=== PATIENT | male | born 1940 | race Caucasian/White ===

== ENCOUNTER 2020-04-05 14:45 | Emergency (ER) | payer MEDICARE, OTHER, SELFPAY ==
[2020-04-05 15:08] VITALS: BP 141/70; PULSE 86; RESP 16; TEMP 36.6; O2SAT 98
--- NOTE | 2020-04-05 15:28 | ED.GENADULT ---
HPI - General Adult General Chief complaint: Eye Problems Stated complaint: Foreign object right eye Time Seen by Provider: 04/05/20 15:28 Source: patient and RN notes reviewed Mode of arrival: ambulatory Limitations: no limitations History of Present Illness HPI narrative: 79-year-old male presents with complains of sensation of foreign body in right eye for 1.5 hours. Several irrigation attempts to remove piece of copper from RT eye with little relief. Madi says he believes he obtained pieces of scraping in RT eye while wearing safety glasses. Mild redness, no drainage. No exacerbating factors. Relieving factors is closing eyes. Denies blurred vision, double vision, or pain of eye with movement. Denies fever or chills. The patient reports he have not been diagnosed with COVID-19. The patient reports he is not waiting for the results of a COVID-19 lab test. The patient reports he do not have fever, chills, weakness, fatigue, myalgia, or facial swelling. The patient reports he do not have a new or worsening cough or shortness of breath. Denies chest pain. The patient reports he do not have any rhinorrhea, congestion, sore throat, nausea, vomiting, abdominal pain, and diarrhea. Tolerating po intake well. Denies recent traveling. Denies concerns for COVID-19 or exposures been home with limited outdoor exposure except for essential household needs and return home. At this time, patient is not suspected of having COVID-19. Some parts of this dictation were generated by voice recognition software and may contain typographical and/or grammatical inaccuracies. Related Data Home Medications Medication Instructions Recorded Confirmed amlodipine 04/05/20 atorvastatin 04/05/20 losartan 04/05/20 omeprazole 04/05/20 pravastatin 04/05/20 tamsulosin mg PO 04/05/20 Allergies Allergy/AdvReac Type Severity Reaction Status Date / Time No Known Allergies Allergy Unverified 01/27/15 16:44 Review of Systems Review of Systems: Narrative: CONSTITUTIONAL: Denies fever, chills, sweats. EYES: Denies visual changes. Complains of RT eye foreign body sensation. Denies discharge. ENT: Denies rhinorrhea, congestion, sore throat, otalgia. CARDIOVASCULAR: Denies chest pain, palpitations, edema. RESPIRATORY: Denies dyspnea, wheezing, cough. GASTROINTESTINAL: Denies abdominal pain, nausea, vomiting, diarrhea. GENITOURINARY: Denies dysuria, hematuria, abnormal discharge. SKIN: Denies rash or itching. MUSCULOSKELETAL: Denies acute back pain, joint pain, or myalgia. NEUROLOGIC: Denies numbness or focal weakness. PSYCHIATRIC: Denies anxiety or depression. All systems reviewed & are unremarkable except as noted in HPI and below. [facility] Past Medical History Medical History (Updated 04/06/20 @ 00:00 by Dick Chen) Bladder cancer Cataract RT cataract surgery on 03/17/20. History of gastroesophageal reflux (GERD) Hypercholesteremia Hypertension Melanoma Surgical History Surgical History (Updated 04/05/20 @ 15:52 by DELMY Park) H/O right inguinal hernia repair History of hernia surgery LT inguinal Family History Family History (Updated 04/05/20 @ 15:52 by DELMY Park) Father Unknown family medical history Mother , Old age No problems noted. Social History Social History (Updated 04/05/20 @ 15:53 by DELMY Park) Smoking status: Never smoker Tobacco type: cigarettes Second hand tobacco smoke exposure: No Alcohol intake: current Alcohol use details: Rarely Substance use: never Occupation/Education: retired Gender identity (if verbalized by the patient): Male Comments At time of signature, I have reviewed and agree with nursing past medical, surgical, social, and family history. Please see nursing chart for further information. There is no relevant family history pertinent to the presenting complaint. Exam Narrative: Exam Narr
== END 2020-04-05 16:07 | disposition home or self-care (01) ==
PROVIDERS: Emergency Provider Nurse Practitioner Family
DX: S05.01XA Injury of conjunctiva and corneal abrasion without foreign body, right eye, initial encounter (principal); Z98.41 Cataract extraction status, right eye; Z85.51 Personal history of malignant neoplasm of bladder; E78.00 Pure hypercholesterolemia, unspecified; I10 Essential (primary) hypertension; Z85.820 Personal history of malignant melanoma of skin; X58.XXXA Exposure to other specified factors, initial encounter
CPT/HCPCS: 99213; A9270; G0463

== ENCOUNTER 2021-06-25 14:44 | Emergency (ER) | payer MEDICARE, OTHER, SELFPAY ==
[2021-06-25 14:59] VITALS: BP 150/77; PULSE 79; RESP 20; TEMP 36.6; O2SAT 99
[2021-06-25] MEDS: ONDANSETRON HCL ODT 4 MG TABLET PO (15:18)
--- NOTE | 2021-06-25 15:18 | ED.GENADULT ---
HPI - General Adult General Chief complaint: Nausea/Vomiting/Diarrhea Stated complaint: Abdominal Pain Time Seen by Provider: 06/25/21 14:51 Source: patient Mode of arrival: ambulatory Limitations: no limitations History of Present Illness HPI narrative: 81 y/o male. PMHx GERD, HTN, HLD, Renal Carcinoma, BPH. Presents to [facility] today with acute complaints of abdominal pain, N/V, as well as 'tingling' sensation to his bilateral hands. Pt tells me that he had eaten lunch this AM with his at [facility], when he suddenly began to feel like his bilateral hands were tingling, and then led immediately to a sudden onset of mid-epigastric abdominal pain and N/V. He tells me that he thought these symptoms would pass, however his vomiting has since continued. No focal weakness. He denies chest pain, dyspnea, palpitations, edema. No flank pain, maleurogen concern, loose or bloody stool. He is without additional acute c/o illness upon PE. Related Data Home Medications Medication Instructions Recorded Confirmed amlodipine 5 mg PO DAILY 04/05/20 06/25/21 atorvastatin 40 mg PO DAILY 04/05/20 06/25/21 losartan 50 mg PO DAILY 04/05/20 06/25/21 omeprazole 20 mg PO DAILY 04/05/20 06/25/21 tamsulosin 0.4 mg PO DAILY 04/05/20 06/25/21 meclizine 25 mg tablet 25 mg PO BID 01/07/21 06/25/21 multivitamin 1 tablet PO DAILY 01/07/21 06/25/21 Allergies Allergy/AdvReac Type Severity Reaction Status Date / Time No Known Allergies Allergy Unverified 06/25/21 15:11 Review of Systems Review of Systems: CONSTITUTIONAL: Denies fever, chills, sweats. EYES: Denies visual changes, redness, discharge. ENT: Denies rhinorrhea, congestion, sore throat, otalgia. CARDIOVASCULAR: Denies chest pain, palpitations, edema. RESPIRATORY: Denies dyspnea, wheezing, cough GASTROINTESTINAL: Positive mid-epigastric abdominal pain, nausea, vomiting SKIN: Denies rash or itching. MUSCULOSKELETAL: Denies acute back pain, joint pain, or myalgia. NEUROLOGIC: Denies focal weakness. Bilateral hand tingling. PSYCHIATRIC: Denies anxiety or depression. All systems reviewed & are unremarkable except as noted in HPI and below PMFSH Past Medical History Medical History Arthritis Bladder cancer Cataract RT cataract surgery on 03/17/20. History of gastroesophageal reflux (GERD) Hypercholesteremia Hypertension Melanoma Right rotator cuff tear Surgical History Surgical History Basal cell carcinoma excision from right ear H/O right inguinal hernia repair History of hernia surgery LT inguinal Family History Family History Father Unknown family medical history Mother , Old age Hypertension Social History Social History Smoking status: Never smoker Tobacco type: cigarettes Second hand tobacco smoke exposure: No Alcohol intake: current Alcohol use details: Rarely Substance use: never Gender identity (if verbalized by the patient): Male Exam Narrative: GENERAL: This is a well-nourished, well-developed adult, ill appearing. HEAD: normocephalic. EYES: PERRL. EARS: External ears normal CARDIOVASCULAR: Regular rate and rhythm without murmurs, gallops, or rubs. RESPIRATORY: Clear to auscultation. Breath sounds equal bilaterally. No wheezes, rales, or rhonchi. GASTROINTESTINAL: Abdomen soft, nondistended. With tenderness and guarding to mid-epigastric and RUQ. Bowel sounds present. SKIN: warm, intact with no suspicious lesions or rash, good texture and turgor. NEURO: Alert, active, and age appropriate. No focal neurologic deficits. EXTREMITIES: Negative. Course Vital Signs Vital signs: Vital Signs Temperature 36.6 C 06/25/21 14:59 Pulse Rate 79 06/25/21 14:59 Respiratory Rat
--- NOTE | 2021-06-25 15:37 | ECG_ITS ---
Measurements Intervals [place] Rate: 61 P: 58 IA: 198 QRS: 49 QRSD: 90 T: 56 QT: 408 QTc: 411 Interpretive Statements SINUS RHYTHM VOLTAGE CRITERIA FOR LVH BASELINE ARTIFACT- I, II, AVR, AVL BORDERLINE ECG Electronically Signed On 06-25-2021 15:53:08 CDT by Quirino Obrien D.O.
== END 2021-06-25 15:40 | disposition short-term general hospital (02) ==
PROVIDERS: Emergency Provider Nurse Practitioner Adult Health
DX: R10.13 Epigastric pain (principal); R20.2 Paresthesia of skin; R11.2 Nausea with vomiting, unspecified; M19.90 Unspecified osteoarthritis, unspecified site; Z85.51 Personal history of malignant neoplasm of bladder; Z85.828 Personal history of other malignant neoplasm of skin; K21.9 Gastro-esophageal reflux disease without esophagitis; E78.00 Pure hypercholesterolemia, unspecified; I10 Essential (primary) hypertension; Z85.820 Personal history of malignant melanoma of skin
CPT/HCPCS: 93005; 99213; A9270; G0463

== ENCOUNTER 2021-06-25 16:03 | Emergency (ER) | payer MEDICARE, OTHER, SELFPAY ==
--- NOTE | ~2021-06-25 | US_ITS ---
EXAMINATION: US right upper quadrant DATE: 06/25/2021 18:13 INDICATION: Right upper quadrant pain TECHNIQUE: Multiple grayscale and Doppler ultrasound images of the abdomen were obtained. COMPARISON: None available FINDINGS: Bowel gas obscures visualization of the pancreas. The visualized portions of the pancreas a re unremarkable. The liver is normal with normal echogenicity and echotexture. No surface nodularity. Normal hepatopetal flow in the main portal vein. There is debris in the gallbladder. No gallbladder wall thickening or pericholecystic fluid are identified. The normal common bile duct measures 3 mm. T here was no sonographic Martinez sign. IMPRESSION: 1. Debris in the gallbladder. No definite correlate for right upper quadrant pain. Reviewed, dictated and finalized at location A. IMPRESSION: 1. Debris in the gallbladder. No definite correlate for right upper quadrant pa in.
[2021-06-25 16:21] VITALS: BP 157/77; PULSE 68; RESP 18; O2SAT 98
[2021-06-25 16:45] LABS: Basophils Percent Auto 0.3 % (0.2-1.2); Eosinophils Absolute Auto 0.1 K/mm3 (0-0.3); Eosinophils Percent Auto 0.8 % (0-4.4); Hematocrit 41.1 % (42.0-52.0); Hemoglobin 13.7 g/dL (14.0-18.0); Immature Granulocyte Absolute 0.07 K/mm3 (0.00-0.031); Immature Granulocyte Percent A 0.6 % (0-0.5); Lymphocytes Absolute Auto 0.86 K/mm3 (0.9-3.2); Mean Corpuscular HGB Conc 33.3 g/dl (32-36); Mean Corpuscular Hemoglobin 31.9 pg (26-34); Mean Corpuscular Volume 95.8 fl (80-100); Mean Platelet Volume 9.1 fl (7.4-10.4); Monocytes Absolute Auto 0.6 K/mm3 (0.1-0.6); Monocytes Percent Auto 4.5 % (2.6-8.5); Neutrophils Absolute Auto 10.7 K/mm3 (1.3-6.7); Neutrophils Percent Auto 86.8 % (45.5-73.1); Platelet Count Result 231 k/mm3 (150-375); Red Blood Count 4.29 M/mm3 (4.6-6.20); Red Cell Distribution Width 12.8 % (11.5-14.5); White Blood Count 12.3 K/mm3 (4.5-10.0)
[2021-06-25 16:58] LABS: Alanine Aminotransferase 92 U/L (4-50); Albumin Level 4.3 g/dL (3.5-5.1); Alkaline Phosphatase 136 U/L (38-126); Anion Gap 6 mmol/L (8-16); Aspartate Amino Transferase 138 U/L (17-59); Bilirubin,Total 0.7 mg/dL (0.2-1.3); Blood Urea Nitrogen 22 mg/dL (9-20); Calcium 9.5 mg/dL (8.4-10.2); Carbon Dioxide 30 mmol/L (22-30); Chloride 104 mmol/L (98-107); Estimated CRCL calculation 44 ml/min; Estimated Glomerular Filt Rate > 60; Glucose 128 mg/dL (65-110); Lipase 53 U/L (23-300); Potassium 3.8 mmol/L (3.4-5.0); Sodium 140 mmol/L (137-145)
--- NOTE | 2021-06-25 19:36 | ED.ABDPAIN ---
HPI - Abdominal Pain General Chief Complaint: Abdominal Pain Stated Complaint: ABD Pain Time Seen by Provider: 06/25/21 17:53 History of Present Illness HPI narrative: Patient is an 81-year-old male who presents ER with epigastric and right upper quadrant pain. Sudden onset after eating [employer]. Associate with some nausea. No fevers or chills or sweats. Pain went away after receiving a pain medication at an urgent care. Has not had similar pain at this time patient is not having any discomfort. No diarrhea. Related Data Home Medications Medication Instructions Recorded Confirmed amlodipine 5 mg PO DAILY 04/05/20 06/25/21 atorvastatin 40 mg PO DAILY 04/05/20 06/25/21 losartan 50 mg PO DAILY 04/05/20 06/25/21 omeprazole 20 mg PO DAILY 04/05/20 06/25/21 tamsulosin 0.4 mg PO DAILY 04/05/20 06/25/21 meclizine 25 mg tablet 25 mg PO BID 01/07/21 06/25/21 multivitamin 1 tablet PO DAILY 01/07/21 06/25/21 Allergies Allergy/AdvReac Type Severity Reaction Status Date / Time No Known Allergies Allergy Verified 06/25/21 17:55 Review of Systems Review of Systems: All systems reviewed & are unremarkable except as noted in HPI and below Constitutional: Constitutional: Denies chills, Denies fever(s) and Denies weakness ENT: Denies nasal congestion and Denies sore throat Cardiovascular: Cardiovascular: Denies chest pain, Denies rapid heart rate and Denies radiating jaw, neck or arm pain Respiratory: Respiratory: Denies cough and Denies dyspnea Gastrointestinal: Gastrointestinal: Reports abdominal pain, Denies bloating, Denies diarrhea, Reports nausea and Denies vomiting Genitourinary: Genitourinary: Denies dysuria and Denies urinary frequency [facility] Past Medical History Medical History Arthritis Bladder cancer Cataract RT cataract surgery on 03/17/20. History of gastroesophageal reflux (GERD) Hypercholesteremia Hypertension Melanoma Right rotator cuff tear Surgical History Surgical History Basal cell carcinoma excision from right ear H/O right inguinal hernia repair History of hernia surgery LT inguinal Family History Family History Father Unknown family medical history Mother , Old age Hypertension Social History Social History Smoking status: Never smoker Tobacco type: cigarettes Second hand tobacco smoke exposure: No Alcohol intake: current Alcohol use details: Rarely Substance use: never Gender identity (if verbalized by the patient): Male Exam Narrative: GENERAL: Well-appearing, well-nourished, and in no acute distress. HEAD: Normocephalic, atraumatic. EYES: PERRL and EOMI. CHEST: Clear to auscultation. No respiratory distress. HEART: Regular rate and rhythm. Normal peripheral pulses. ABDOMEN: Soft, nontender, nondistended. EXTREMITIES: Normal range of motion. No edema. SKIN: Warm, dry, no rash. NEURO: Alert and oriented x3. PSYCH: Normal mood and affect. Course Course Emergency Course: Discussed case with Dr. Che. Recommends outpatient antibiotics and follow-up in clinic. Discussed low-fat diet with patient. Discharge home. Vital Signs Vital signs: Vital Signs Pulse Rate 68 06/25/21 16:21 Respiratory Rate 18 06/25/21 16:21 Blood Pressure 157/77 H 06/25/21 16:21 Pulse Oximetry 98 06/25/21 16:21 Pulse Rate 68 06/25/21 16:21 Respiratory Rate 18 06/25/21 16:21 Blood Pressure 157/77 H 06/25/21 16:21 Pulse Oximetry 98 06/25/21 16:21 MDM - Abdominal Pain Lab Data Result diagrams: 06/25/21 16:26 06/25/21 16:26 Labs: Lab Results 06/25/21 06/25/21 Range/Units 16:26 16:26 WBC 12.3 H (4.5-10.0) K/mm3 RBC 4.29 L (4.6-6.20) M/mm3 Hgb 13.7 L (14.0-18.0) g/dL
[2021-06-25] MEDS: CIPROFLOXACIN 500 MG TAB PO (20:17)
[2021-06-25 20:20] VITALS: BP 147/72; PULSE 72; RESP 18; O2SAT 99
== END 2021-06-25 20:25 | disposition home or self-care (01) ==
PROVIDERS: Emergency Medicine; Emergency Provider Emergency Medicine
DX: K80.50 Calculus of bile duct without cholangitis or cholecystitis without obstruction (principal); R10.13 Epigastric pain; M19.90 Unspecified osteoarthritis, unspecified site; K21.9 Gastro-esophageal reflux disease without esophagitis; E78.00 Pure hypercholesterolemia, unspecified; Z85.51 Personal history of malignant neoplasm of bladder; Z85.820 Personal history of malignant melanoma of skin; Z98.41 Cataract extraction status, right eye
CPT/HCPCS: 36415; 76705; 80053; 83690; 85025; 93005; 99284; A9270

== ENCOUNTER 2021-06-29 04:01 | Inpatient (IN) | payer MEDICARE, OTHER, SELFPAY ==
[2021-06-29] VITALS (38 sets, daily range): BP systolic 120–149; BP diastolic 55–86; PULSE 74–102; RESP 11–26; TEMP 36.3–36.9; O2SAT 92–100; BMI 23.8
--- NOTE | ~2021-06-29 | CT_ITS ---
EXAMINATION: CT abdomen pelvis wo/w con DATE: 07/03/2021 12:27 INDICATION: Urinary symptoms, history of bladder cancer, recent cholecystectomy TECHNIQUE: Computed tomography (CT) of the abdomen and pelvis was performed without intravenous contr ast. CT of the abdomen and pelvis was then performed with a total of 130 mL Omnipaque 350 intravenous contrast using a double-bolus technique for simultaneous opacification of the renal parenchyma and r enal collecting system. The dose-length product (DLP) was 1379.85 mGy-cm. Automated exposure control and iterative reconstruction technique were employed. COMPARISON: 06/29/2021 FINDINGS: There is a small right pleural effusion. There is mild atelectasis in the right lung base. The heart size is normal. There are changes of interval cholecystectomy. A small volume of perihepati c fluid is noted which tracks into the right pericolic gutter. Punctate foci of free intraperitoneal gas in the upper abdomen and gas in the anterior abdominal wall are also consistent with recent surge ry. Cysts of the liver measure up to 9 mm in the left hepatic lobe. The spleen, pancreas, and adrenal glands are normal. Cysts of the kidneys measure up to 10.2 cm on the left. The urinary bladder is di stended. There is moderate right hydroureteronephrosis. There is no opacification of the ureters or b ladder beyond bilateral renal pelves. No suspicious renal or urothelial lesion is identified. No path ologically enlarged abdominal or pelvic lymph nodes are identified. There is no evidence of bowel obs truction. The appendix is normal. There appears to be nodular enlargement of the central prostate to the right of midline. Compression fractures of T11 and L1 are again noted. IMPRESSION: 1. No suspicious renal or urothelial lesion identified. 2. Changes related to recent cholecystectomy. Reviewed, dictated and finalized at location A.
--- NOTE | ~2021-06-29 | XR_ITS ---
EXAMINATION: XR ERCP EXAM DATE: 06/30/2021 13:08 INDICATION: Choledocholithiasis. TECHNIQUE: Fluoroscopy used during XR ERCP performed by Dr. Trevor Contreras MD. Radiolo gist was not present for the imaging or procedure. Total fluoroscopic time of 154. The DAP for this procedure was 1.0 mGym2. A total of 5 images sent to PACS from the exam. Correlation is made to CT abdomen pelvis from yesterday. FINDINGS: The ampulla was cannulated, injected. There is mild biliary dilation. A filling defect is suspected on the initial images, could be gas bubble or stone. Correlate with procedure note. IMPRESSION: Fluoroscopy used during ERCP, stone removal. Reviewed, dictated and finalized at location B.
--- NOTE | ~2021-06-29 | US_ITS ---
EXAMINATION: US renal BI DATE: 07/02/2021 15:15 INDICATION: Bladder cancer. Urinary symptoms after Valdes catheter placement. TECHNIQUE: Multiple ultrasound grayscale images of the kidneys were obtained. COMPARISON: CT abdomen and pelvis 06/29/2021 FINDINGS: The right kidney measures 11.0 x 7.1 x 7.9 cm. The left kidney measures 11.6 x 4.6 x 5.1 cm. The kidn eys demonstrate normal parenchymal echogenicity. There is moderate right hydronephrosis. There is a 1 4 mm cyst in right kidney. There is a 10.9 cm cyst in left kidney.. The bladder is normal. IMPRESSION: 1. Moderate right-sided hydronephrosis, worsened from 06/29/2021. Reviewed, dictated and finalized at location A.
--- NOTE | ~2021-06-29 | CT_ITS ---
EXAMINATION: CT abdomen pelvis w con INDICATION: Abdominal pain, elevated lipase TECHNIQUE: Computed tomographic images of the abdomen and pelvis were obtained after the administrati on of 100 cc of Omnipaque 350 intravenous contrast. The dose-length product (DLP) was 644.31 mGy-cm. Automated exposure control and iterative reconstruction technique were employed. COMPARISON: 06/29/2008 FINDINGS: Minimal dependent atelectasis is present in the lung bases. The heart size is normal. There is a 4 mm stone in the distal common bile duct which causes intrahepatic and extrahepatic biliary di latation. Stones are present in the gallbladder. There is dilatation and wall thickening of the gallb ladder. There is subtle fat stranding around the head of the pancreas. Cysts of the liver measure up to 9 mm in the left hepatic lobe. The spleen and adrenal glands are normal. Cysts of the kidneys nelia ure up to 10.2 cm on the left. There is mild right hydroureteronephrosis of unclear etiology. There i s calcified atherosclerosis of the aorta and many of the other arteries. No pathologically enlarged a bdominal or pelvic lymph nodes are identified. There is no free intraperitoneal gas or evidence of pierre wel obstruction. There are age indeterminate compression fractures of the T11 and L1 vertebral bodies . A small fat-containing umbilical hernia is noted. IMPRESSION: 1. Choledocholithiasis with distal common bile duct obstruction resulting in intrahepatic and extra h epatic biliary dilatation, gallbladder distention and likely secondary cholecystitis, and pancreatiti s. 2. Mild right hydroureteronephrosis of unclear etiology. Reviewed, dictated and finalized at location A. IMPRESSION: 1. Choledocholithiasis with distal common bile duct obstruction resulting in in trahepatic and extra hepatic biliary dilatation, gallbladder distention and lik karan secondary cholecystitis, and pancreatitis. 2. Mild right hydroureteronephrosis of unclear etiology.
--- NOTE | 2021-06-29 04:16 | PC.NURSE ---
Seen here for abd pain that was dx as gallbladder 3 days ago. has appt. c GI Dr. Che 07/01. c/o same pain. has not taken RX pain med bc it wasn't that bad . no distress.
--- NOTE | 2021-06-29 04:47 | ED.GENADULT ---
HPI - General Adult General Chief complaint: Abdominal Pain <Armen Velazquez MD - Last Filed: 06/29/21 07:04> Stated complaint: abd pain <Armen Velazquez MD - Last Filed: 06/29/21 07:04> Time Seen by Provider: 06/29/21 04:23 <Armen Velazquez MD - Last Filed: 06/29/21 07:04> History of Present Illness HPI narrative: Patient 81-year-old gentleman who presents the emergency department with chief complaint of abdominal pain and low-grade fever. The patient was seen in the emergency department recently found to have sludge in his gallbladder the patient was pain controlled and discharged home on p.o. antibiotics to follow-up with Dr. Che this week patient reports that he noticed he had maybe a low-grade fever at home and noticed that his pain was creeping back up. Patient states that he is feeling little bit better since he arrived to the emergency department <Armen Velazquez MD - Last Filed: 06/29/21 07:04> Related Data Home medications: Home Medications Medication Instructions Recorded Confirmed amlodipine 5 mg PO DAILY 04/05/20 06/25/21 atorvastatin 40 mg PO DAILY 04/05/20 06/25/21 losartan 50 mg PO DAILY 04/05/20 06/25/21 omeprazole 20 mg PO DAILY 04/05/20 06/25/21 tamsulosin 0.4 mg PO DAILY 04/05/20 06/25/21 meclizine 25 mg tablet 25 mg PO BID 01/07/21 06/25/21 multivitamin 1 tablet PO DAILY 01/07/21 06/25/21 <Armen Velazquez MD - Last Filed: 06/29/21 07:04> Allergies/adverse reactions: Allergies Allergy/AdvReac Type Severity Reaction Status Date / Time No Known Allergies Allergy Verified 06/29/21 04:21 <Armen Velazquez MD - Last Filed: 06/29/21 07:04> Review of Systems Review of Systems: A 10 system review of systems was completed on the patient and is negative except for what is stated in the HPI. Nursing and ancillary documentation was reviewed. <Armen Velazquez MD - Last Filed: 06/29/21 07:04> PMFSH Past Medical History Medical History: Medical History Arthritis Bladder cancer Cataract RT cataract surgery on 03/17/20. History of gastroesophageal reflux (GERD) Hypercholesteremia Hypertension Melanoma Right rotator cuff tear <Armen Velazquez MD - Last Filed: 06/29/21 07:04> Surgical History Surgical History: Surgical History Basal cell carcinoma excision from right ear H/O right inguinal hernia repair History of hernia surgery LT inguinal <Armen Velazquez MD - Last Filed: 06/29/21 07:04> Family History Family History: Family History Father Unknown family medical history Mother , Old age Hypertension <Armen Velazquez MD - Last Filed: 06/29/21 07:04> Social History Social History: Social History Smoking status: Never smoker Tobacco type: cigarettes Second hand tobacco smoke exposure: No Alcohol intake: current Alcohol use details: Rarely Substance use: never Gender identity (if verbalized by the patient): Male <Armen Velazquez MD - Last Filed: 06/29/21 07:04> Exam Narrative: GENERAL: Well-appearing, well-nourished, and in no acute distress. HEAD: Normocephalic, atraumatic. EYES: PERRLA and EOMI. ENT: Nares clear, no rhinorrhea or epistaxis. Mucous membranes moist. NECK: Supple. CHEST: Clear to auscultation. No respiratory distress. HEART: Regular rate and rhythm. No murmur heard. Normal peripheral pulses. ABDOMEN: Soft, mild tenderness to palpation in the epigastric region, nondistended, normal active bowel sounds. EXTREMITIES: Normal range of motion. No edema. SKIN: Warm, dry, no rash. NEURO: No focal deficits. Alert and oriented x3. PSYCH: Normal
[2021-06-29] MEDS: SODIUM CHLORIDE 0.9% IV 1,000 ML 999 ML IV CONT (04:54)
[2021-06-29] MEDS: ONDANSETRON INJ 4 MG/2 ML VIAL IV PUSH ×2 (04:54→09:04)
[2021-06-29] MEDS: MORPHINE SULFATE (*CRX) 4 MG/ML INJ IV PUSH ×3 (04:54→09:04)
[2021-06-29 05:13] LABS: Basophils Absolute Auto 0.1 K/mm3 (0.0-0.1); Basophils Percent Auto 0.5 % (0.2-1.2); Eosinophils Absolute Auto 0.1 K/mm3 (0-0.3); Eosinophils Percent Auto 0.8 % (0-4.4); Hematocrit 36.8 % (42.0-52.0); Hemoglobin 12.7 g/dL (14.0-18.0); Immature Granulocyte Absolute 0.06 K/mm3 (0.00-0.031); Immature Granulocyte Percent A 0.5 % (0-0.5); Lymphocytes Absolute Auto 1.14 K/mm3 (0.9-3.2); Lymphocytes Percent Auto 9.5 % (18.3-44.2); Mean Corpuscular HGB Conc 34.5 g/dl (32-36); Mean Corpuscular Hemoglobin 31.6 pg (26-34); Mean Corpuscular Volume 91.5 fl (80-100); Mean Platelet Volume 9.4 fl (7.4-10.4); Monocytes Absolute Auto 0.9 K/mm3 (0.1-0.6); Monocytes Percent Auto 7.6 % (2.6-8.5); Neutrophils Absolute Auto 9.8 K/mm3 (1.3-6.7); Neutrophils Percent Auto 81.1 % (45.5-73.1); Platelet Count Result 251 k/mm3 (150-375); Red Blood Count 4.02 M/mm3 (4.6-6.20); Red Cell Distribution Width 12.3 % (11.5-14.5); White Blood Count 12.1 K/mm3 (4.5-10.0)
--- NOTE | 2021-06-29 05:21 | PC.NURSE ---
Meds given as ordered, fluids infusing, pt provided with urinal at bedside and instructed on need for urine sample. verbalized understanding. call light in reach and family at bedside. will continue to monitor.
[2021-06-29 05:22] LABS: Alanine Aminotransferase 91 U/L (4-50); Albumin Level 3.8 g/dL (3.5-5.1); Alkaline Phosphatase 256 U/L (38-126); Anion Gap 11 mmol/L (8-16); Aspartate Amino Transferase 113 U/L (17-59); Bilirubin,Total 1.9 mg/dL (0.2-1.3); Blood Urea Nitrogen 18 mg/dL (9-20); Carbon Dioxide 24 mmol/L (22-30); Chloride 100 mmol/L (98-107); Estimated CRCL calculation 44 ml/min; Estimated Glomerular Filt Rate > 60; Glucose 130 mg/dL (65-110); Lipase 1330 U/L (23-300); Potassium 3.3 mmol/L (3.4-5.0); Sodium 135 mmol/L (137-145)
--- NOTE | 2021-06-29 06:52 | PC.NURSE ---
Urine obtained and sent to lab.
[2021-06-29 06:53] LABS: Add Urine Microscopic? YES; Appearance Urine Clear (Clear); Bilirubin Urine Negative (Negative); Blood Urine Negative (Negative); Color Urine Yellow (Yellow); Glucose Urine UA Negative (Negative); Ketones Urine Negative (Negative); Leukocyte Esterase Ur 1+ LEU/UL (Negative); Mucus Urine Rare /lpf; Nitrate Urine Negative (Negative); Protein Urine 1+ mg/dL (Negative); RBC Urine 0-2 /hpf (0-2); Specific Grav Ur 1.014 (1.001-1.035); Urobilinogen Urine Negative mg/dL (<2.0); WBC Urine 31-50 /hpf
--- NOTE | 2021-06-29 09:20 | ADMGEN ---
This patient, Madi Jiang, was admitted to 3 [facility] Surg Room 301-01. Patient/family oriented to hospital policies and general routines including ID bracelet, bed and alarms, visiting hours, pain management, procedures, bathroom and other care routines, personal items, smoking policy, room service/diet, and visiting hours. Information on how to activate the Rapid Response Team has been discussed. Patient/Family are encouraged to report perceived risks to care and to ask questions if they do not understand what they are told or what they should do.
[2021-06-29] MEDS: SODIUM CHLORIDE 0.9% IV 1,000 ML 125 ML IV CONT ×2 (09:24→17:51)
--- NOTE | 2021-06-29 09:36 | ADMGEN ---
This patient, Madi Jiang, was admitted to 3 [facility] Surg Room 301-01. Patient/family oriented to hospital policies and general routines including ID bracelet, bed and alarms, visiting hours, pain management, procedures, bathroom and other care routines, personal items, smoking policy, room service/diet, and visiting hours. Information on how to activate the Rapid Response Team has been discussed. Patient/Family are encouraged to report perceived risks to care and to ask questions if they do not understand what they are told or what they should do. AT BEDSIDE
--- NOTE | 2021-06-29 10:54 | PM.IMHP ---
H&P: HPI History of Present Illness Date/Time: 06/29/21 10:54 Chief Complaint: Abdominal pain Narrative: Patient 81-year-old gentleman who presents to the emergency department with chief complaint of abdominal pain and low-grade fever. Patient was recently in the ER with a similar problem few days ago. An abdominal ultrasound done at the time showed sludge in has gallbladder pain was controlled and was discharged home on p.o. antibiotics to follow up with general surgeon next week however he comes back with increased pain in his abdomen in the upper mid abdomen surveyed low-grade fever and nausea. This time he had a CT abdomen which showed choledocholithiasis with distal common bile duct obstruction resulting in intrahepatic and extrahepatic biliary dilatation gallbladder distention and likely secondary cholecystitis and pancreatitis. He also had elevated lipase and liver enzymes. He is admitted for further evaluation and management. Review of Systems Review of Systems: - CONSTITUTIONAL: Denies weight loss, reports low-grade fever and chills. - HEENT: Denies changes in vision and hearing - RESPIRATORY: Denies SOB and cough. - CV: Denies palpitations and CP. - GI: Reports abdominal pain, nausea, denies vomiting and diarrhea. - : Denies dysuria and urinary frequency. - MSK: Denies myalgia and joint pain. - SKIN: Denies rash and pruritus. - NEUROLOGICAL: Denies headache and syncope. - PSYCHIATRIC: Denies recent changes in mood. Denies anxiety and depression. All systems reviewed & are unremarkable except as noted in HPI and below Constitutional: Constitutional: Reports fatigue and Reports weakness Neurologic: Reports weakness Endocrine: Endocrine: Reports fatigue [facility] Past Medical History Medical History (Updated 06/29/21 @ 14:03 by Roberto Feliciano MD) Arthritis Bladder cancer Cataract RT cataract surgery on 03/17/20. History of gastroesophageal reflux (GERD) Hypercholesteremia Hypertension Melanoma Right rotator cuff tear Surgical History Surgical History Basal cell carcinoma excision from right ear H/O right inguinal hernia repair History of hernia surgery LT inguinal Family History Family History Father Unknown family medical history Mother , Old age Hypertension Social History Social History Smoking status: Never smoker Tobacco type: cigarettes Second hand tobacco smoke exposure: No Alcohol intake: never Alcohol use details: Rarely Substance use: never Substance use type: does not use Gender identity (if verbalized by the patient): Male Spiritual care concerns: No Meds Home Medications and Allergies Home Medications Medication Instructions Recorded Confirmed Type amlodipine 5 mg PO DAILY 04/05/20 06/29/21 History atorvastatin [Lipitor] 40 mg PO DAILY 04/05/20 06/29/21 History losartan 50 mg PO DAILY 04/05/20 06/29/21 History omeprazole 20 mg PO DAILY 04/05/20 06/29/21 History tamsulosin 0.4 mg PO DAILY 04/05/20 06/29/21 History meclizine 25 mg tablet 25 mg PO BID 01/07/21 06/29/21 History multivitamin 1 tablet PO DAILY 01/07/21 06/29/21 History ciprofloxacin HCl [Cipro] 500 mg PO Q12H #14 tablet 06/25/21 06/29/21 Rx hydrocodone-acetaminophen 1 tablet PO Q6H PRN #12 tablet 06/25/21 06/29/21 Rx metronidazole 500 mg PO Q8H #21 tablet 06/25/21 06/29/21 Rx ondansetron 4 mg PO Q6H PRN #10 tablet 06/25/21 06/29/21 Rx Allergies Allergy/AdvReac Type Severity Reaction Status Date / Time No Known Allergies Allergy Verified 06/29/21 04:21 Vital Signs Vital Signs - 24 hr 06/29/21 04:03 06/29/21 04:13 06/29/21 04:16 Temperature 97.7 F Pulse Rate 102 H 98 100 Respiratory Rate 18 23 H Blood Pressure 140/85 149/76 H Pulse Oximetry 100 98 99 06/29/21 04:17
--- NOTE | 2021-06-29 13:45 | PM.CNGS ---
Assessment and Plan Assessment and plan (1) Choledocholithiasis: Code(s): K80.50 - Calculus of bile duct without cholangitis or cholecystitis without obstruction Status: Acute Assessment and Plan: I have reviewed the CT and discussed the findings with the patient. He has evidence of choledocholithiasis and cholelithiasis. He has been admitted to the hospital for further treatment, and GI is planning for ERCP tomorrow. Will await results of the ERCP, but I tentatively discussed proceeding with laparoscopic cholecystectomy the following day. I discussed with patient that proceeding with laparoscopic cholecystectomy will prevent future episodes like this. I discussed the procedure, risks, benefits, and alternatives. Questions were answered. History of Present Illness Consult details Consult date: 06/29/21 Reason for consult: other (Choledocholithiasis) Requesting physician: Chris Grace MD Narrative: This is an 81-year-old man who presented to the emergency department this morning with epigastric abdominal pain. He began having pains about 4 days ago after eating Retidoc. He had gone to the emergency department on 06/25 and workup showed evidence of debris in the gallbladder but no evidence of cholecystitis. He did have a slight elevated white blood count and slightly elevated liver enzymes at that time, but his bilirubin was normal and ultrasound showed no evidence of common bile duct dilation. He states that after leaving the emergency department he did have some mild intermittent pain, but this pain became worse yesterday and persisted through the night. He then presented back to the emergency department this morning and CT showed evidence of choledocholithiasis and his bilirubin is now slightly elevated. He was admitted for further treatment. He denies any prior episodes like this in the past. He denies any history of liver problems. He has been trying to stay on a low-fat diet, but does not really know what to eat. Review of Systems Review of Systems: All systems reviewed & are unremarkable except as noted in HPI and below Constitutional: Constitutional: Denies chills and Denies fever(s) Eyes: Eyes: Denies change in vision ENT: Denies hearing loss, Denies neck pain and Denies sore throat Cardiovascular: Cardiovascular: Denies chest pain and Denies dyspnea Respiratory: Respiratory: Denies cough, Denies dyspnea and Denies wheezing Gastrointestinal: Gastrointestinal: Reports as per HPI Genitourinary: Genitourinary: Denies hematuria and Denies dysuria Musculoskeletal: Musculoskeletal: Denies arthralgias, Denies joint swelling and Denies neck pain Allergic/Immunologic: Allergic/Immunologic: Denies wheezing PMFSH Past Medical History Medical History Arthritis Bladder cancer Cataract RT cataract surgery on 03/17/20. History of gastroesophageal reflux (GERD) Hypercholesteremia Hypertension Melanoma Right rotator cuff tear Surgical History Surgical History Basal cell carcinoma excision from right ear H/O right inguinal hernia repair History of hernia surgery LT inguinal Family History Family History Father Unknown family medical history Mother , Old age Hypertension Social History Social History Smoking status: Never smoker Tobacco type: cigarettes Second hand tobacco smoke exposure: No Alcohol intake: never Alcohol use details: Rarely Substance use: never Substance use type: does not use Gender identity (if verbalized by the patient): Male Spiritual care concerns: No Meds Home Medications and Allergies Home Medications Medication Instructions Recorded Confirmed Type amlodipine 5 mg PO DAILY 04/05/20 06/29/21 H
[2021-06-29] MEDS: ATORVASTATIN 40 MG TABLET PO (14:47)
[2021-06-29] MEDS: amLODIPine BESYLATE 5 MG TABLET PO (14:47)
--- NOTE | 2021-06-29 17:29 | WPDGICN ---
Assessment and Plan Assessment and plan (1) Choledocholithiasis: Code(s): K80.50 - Calculus of bile duct without cholangitis or cholecystitis without obstruction Status: Acute Assessment and Plan: cause of pain and pancreatitis will do ERCP tomorrow to remove stones, also surgery on board for lap kay continue with pain control and iv abx (2) Gallstone pancreatitis: Code(s): K85.10 - Biliary acute pancreatitis without necrosis or infection Status: Acute Assessment and Plan: medical management (3) Elevated liver enzymes: Code(s): R74.8 - Abnormal levels of other serum enzymes Status: Acute Assessment and Plan: trend liver enzymes ercp tomorrow (4) Hypertension: Code(s): I10 - Essential (primary) hypertension Status: Acute GI Consult Note Consult date/time: 06/29/21 17:29 Reason for consult: ruq pain, choledocholithiasis, GS pancreatitis HPI: Madi Jiang is a 81 year old male with h/o HTN who was recently in the ER with ruq/epigastric discomfort few days ago after had [facility], abdominal ultrasound showed sludge in gallbladder then was discharged home on p.o. antibiotics to follow up with general surgeon. This time returns with similar pain in upper abdomen and some nausea, had chills. CT abdomen reviewed, showed choledocholithiasis with distal common bile duct obstruction resulting in intrahepatic and extrahepatic biliary dilatation gallbladder distention and likely secondary cholecystitis and pancreatitis, bili this time 1.9 and lipase 1300. Denies alcohol abuse, previous episode of pancreatitis. Last egd and colonoscopy ~ 6 years ago. Review of Systems Constitutional: Constitutional: Reports chills Eyes: Eyes: Denies blurry vision ENT: Reports Normal hearing present Cardiovascular: Cardiovascular: Denies chest pain Respiratory: Respiratory: Denies dyspnea Gastrointestinal: Gastrointestinal: Reports abdominal pain Genitourinary: Genitourinary: Denies dysuria Musculoskeletal: Musculoskeletal: Denies neck pain Integumentary/Breasts: Skin/Breast: Denies dry skin Neurologic: Denies headache(s) Psychiatric: Psychiatric: Reports no additional psychiatric complaints [facility] Past Medical History Medical History (Updated 06/29/21 @ 17:34 by Trevor Contreras MD) Arthritis Bladder cancer Cataract RT cataract surgery on 03/17/20. Elevated liver enzymes Gallstone pancreatitis History of gastroesophageal reflux (GERD) Hypercholesteremia Hypertension Melanoma Right rotator cuff tear Surgical History Surgical History Basal cell carcinoma excision from right ear H/O right inguinal hernia repair History of hernia surgery LT inguinal Family History Family History Father Unknown family medical history Mother , Old age Hypertension Social History Social History Smoking status: Never smoker Tobacco type: cigarettes Second hand tobacco smoke exposure: No Alcohol intake: never Alcohol use details: Rarely Substance use: never Substance use type: does not use Gender identity (if verbalized by the patient): Male Spiritual care concerns: No Meds Home Medications and Allergies Home Medications Medication Instructions Recorded Confirmed Type amlodipine 5 mg PO DAILY 04/05/20 06/29/21 History atorvastatin [Lipitor] 40 mg PO DAILY 04/05/20 06/29/21 History losartan 50 mg PO DAILY 04/05/20 06/29/21 History omeprazole 20 mg PO DAILY 04/05/20 06/29/21 History tamsulosin 0.4 mg PO DAILY 04/05/20 06/29/21 History meclizine 25 mg tablet 25 mg PO BID 01/07/21 06/29/21 History multivitamin 1 tablet PO DAILY 01/07/21 06/29/21 History ciprofloxacin HCl [Cipro] 500 mg PO Q12H #14 tablet 06/25/21 06/29/21 Rx hydrocodone-acet
[2021-06-29] MEDS: LOSARTAN POTASSIUM 50 MG TABLET PO (17:51)
[2021-06-29] MEDS: TAMSULOSIN HCL 0.4 MG CAPSULE PO (20:43)
[2021-06-30] VITALS (7 sets, daily range): BP systolic 132–155; BP diastolic 55–82; PULSE 55–94; RESP 14–18; TEMP 36.1–36.9; O2SAT 95–98
[2021-06-30] MEDS: SODIUM CHLORIDE 0.9% IV 1,000 ML 125 ML IV CONT (01:51)
[2021-06-30 05:52] LABS: Basophils Absolute Auto 0.1 K/mm3 (0.0-0.1); Basophils Percent Auto 0.6 % (0.2-1.2); Eosinophils Absolute Auto 0.3 K/mm3 (0-0.3); Eosinophils Percent Auto 2.4 % (0-4.4); Hemoglobin 11.9 g/dL (14.0-18.0); Immature Granulocyte Absolute 0.04 K/mm3 (0.00-0.031); Immature Granulocyte Percent A 0.4 % (0-0.5); Lymphocytes Absolute Auto 1.14 K/mm3 (0.9-3.2); Mean Corpuscular Hemoglobin 32.3 pg (26-34); Mean Corpuscular Volume 95.1 fl (80-100); Mean Platelet Volume 9.3 fl (7.4-10.4); Monocytes Absolute Auto 0.7 K/mm3 (0.1-0.6); Monocytes Percent Auto 6.4 % (2.6-8.5); Neutrophils Absolute Auto 8.3 K/mm3 (1.3-6.7); Neutrophils Percent Auto 79.2 % (45.5-73.1); Platelet Count Result 227 k/mm3 (150-375); Red Blood Count 3.68 M/mm3 (4.6-6.20); Red Cell Distribution Width 12.6 % (11.5-14.5); White Blood Count 10.4 K/mm3 (4.5-10.0)
[2021-06-30 06:19] LABS: Alanine Aminotransferase 93 U/L (4-50); Albumin Level 2.9 g/dL (3.5-5.1); Alkaline Phosphatase 254 U/L (38-126); Anion Gap 7 mmol/L (8-16); Aspartate Amino Transferase 95 U/L (17-59); Blood Urea Nitrogen 9 mg/dL (9-20); Calcium 8.3 mg/dL (8.4-10.2); Carbon Dioxide 24 mmol/L (22-30); Chloride 107 mmol/L (98-107); Estimated CRCL calculation 49 ml/min; Estimated Glomerular Filt Rate > 60; Glucose 105 mg/dL (65-110); Magnesium 1.8 mg/dL (1.6-2.3); Potassium 3.6 mmol/L (3.4-5.0); Sodium 138 mmol/L (137-145)
[2021-06-30] MEDS: PANTOPRAZOLE 40 MG TABLET PO (08:59)
[2021-06-30] MEDS: LOSARTAN POTASSIUM 50 MG TABLET PO (08:59)
[2021-06-30] MEDS: MULTIVITAMINS THERAPEUTIC TAB (*BKC) 1 TABLET PO (09:00)
--- NOTE | 2021-06-30 09:33 | WPDANESEPPF ---
Anes - Initial Pre Proc Eval Procedure: Operation Date: 06/30/21 12:30 Proposed Procedures p Endoscopic Retro Cholangiopancreatogram - Trevor Contreras MD Operation Date: 07/01/21 12:30 Proposed Procedures p Laparoscopic Cholecystectomy - Erik Crook DO Date/Time: 06/30/21 09:33 Pre Op Diagnosis: Choledocolithiasis/cholecystitis Patient Data Age: 81 Gender: M Height: 1.73 m Weight: 71 kg Last Vital Signs Temp 36.3 C L 06/30/21 06:00 Pulse 94 06/30/21 06:00 Resp 16 06/30/21 06:00 BP 132/56 L 06/30/21 06:00 Pulse Ox 95 06/30/21 06:00 Allergies Allergy/AdvReac Type Severity Reaction Status Date / Time No Known Allergies Allergy Verified 06/29/21 04:21 Home Medications Medication Instructions Recorded Confirmed Type amlodipine 5 mg PO DAILY 04/05/20 06/29/21 History atorvastatin [Lipitor] 40 mg PO DAILY 04/05/20 06/29/21 History losartan 50 mg PO DAILY 04/05/20 06/29/21 History omeprazole 20 mg PO DAILY 04/05/20 06/29/21 History tamsulosin 0.4 mg PO DAILY 04/05/20 06/29/21 History meclizine 25 mg tablet 25 mg PO BID 01/07/21 06/29/21 History multivitamin 1 tablet PO DAILY 01/07/21 06/29/21 History ciprofloxacin HCl [Cipro] 500 mg PO Q12H #14 tablet 06/25/21 06/29/21 Rx hydrocodone-acetaminophen 1 tablet PO Q6H PRN #12 tablet 06/25/21 06/29/21 Rx metronidazole 500 mg PO Q8H #21 tablet 06/25/21 06/29/21 Rx ondansetron 4 mg PO Q6H PRN #10 tablet 06/25/21 06/29/21 Rx Laboratory Tests 06/30/21 06/30/21 05:23 05:23 WBC 10.4 K/mm3 H K/mm3 (4.5-10.0) RBC 3.68 M/mm3 L M/mm3 (4.6-6.20) Hgb 11.9 g/dL L g/dL (14.0-18.0) Hct 35.0 % L % (42.0-52.0) MCV 95.1 fl fl (80-100) MCH 32.3 pg pg (26-34) MCHC 34.0 g/dl g/dl (32-36) RDW 12.6 % % (11.5-14.5) Plt Count 227 k/mm3 k/mm3 (150-375) MPV 9.3 fl fl (7.4-10.4) Immature Gran % (Auto) 0.4 % % (0-0.5) Neut % (Auto) 79.2 % H % (45.5-73.1) Lymph % (Auto) 11.0 % L % (18.3-44.2) [place] % (Auto) 6.4 % % (2.6-8.5) Eos % (Auto) 2.4 % % (0-4.4) Baso % (Auto) 0.6 % % (0.2-1.2) Lymph # (Auto) 1.14 K/mm3 K/mm3 (0.9-3.2) [place] # (Auto) 0.7 K/mm3 H K/mm3 (0.1-0.6) Eos # (Auto) 0.3 K/mm3 K/mm3 (0-0.3) Baso # (Auto) 0.1 K/mm3 K/mm3 (0.0-0.1) Abs Immat Gran (auto) 0.04 K/mm3 H K/mm3 (0.00-0.031) Absolute Neuts (auto) 8.3 K/mm3 H K/mm3 (1.3-6.7) Absolute Nucleated RBC 0.0 K/mm3 K/mm3 (0.0-0.012) Nucleated RBC % 0.0 % % (0.0-0.2) Sodium 138 mmol/L mmol/L (137-145) Potassium 3.6 mmol/L mmol/L (3.4-5.0) Chloride 107 mmol/L mmol/L (98-107) Carbon Dioxide 24 mmol/L mmol/L (22-30) Anion Gap 7 mmol/L L mmol/L (8-16) BUN 9 mg/dL D mg/dL (9-20) Creatinine 1.00 mg/dL mg/dL (0.7-1.3) Estim Creat Clear Calc 49 ml/min ml/min Estimated GFR > 60 (59 - ) Glucose 105 mg/dL mg/dL (65-110) Calcium 8.3 mg/dL L mg/dL (8.4-10.2) Magnesium 1.8 mg/dL mg/dL (1.6-2.3) Total Bilirubin 3.0 mg/dL H mg/dL (0.2-1.3) AST 95 U/L H U/L (17-59) ALT 93 U/L H U/L (4-50) Alkaline Phosphatase 254 U/L H U/L (38-126) Total Protein 6.0 g/dL L g/dL (6.3-8.2) Albumin 2.9 g/dL L g/dL (3.5-5.1) ECG: Date of Service: 06/25/21 Procedure(s): CA 12 lead EKG Accession Number(s): [id number] cc: ~ Measurements Intervals [place] Rate: 61 P: 58 OR: 198 QRS: 49 QRSD: 90 T: 56 QT: 408 QTc: 411 Interpretive Statements SINUS
--- NOTE | 2021-06-30 10:58 | SUR.PREOP ---
Patient does not need additional antibiotics for ERCP per Dr Viera.
--- NOTE | 2021-06-30 11:23 | PC.NURSE ---
to GI lab per w/c
[2021-06-30] MEDS: LACTATED RINGERS 1,000 ML 150 ML IV CONT (11:29)
--- NOTE | 2021-06-30 11:29 | PC.NURSE ---
On 06/30/21, the student, [ Sydnie Ramos], provided care and completed [facility] documentation on this patient. I have reviewed the student's documentation and agree with the findings.
[2021-06-30] MEDS: INDOMETHACIN 50 MG SUPP.RECT RECTAL (12:25)
--- NOTE | 2021-06-30 13:42 | PC.NURSE ---
returned to floor from GI lab
[2021-06-30] MEDS: MORPHINE SULFATE (*CRX) 4 MG/ML INJ IV PUSH (14:03)
--- NOTE | 2021-06-30 14:47 | PM.IMPN ---
Progress Note: A&P Assessment and Plan (1) Choledocholithiasis: Code(s): K80.50 - Calculus of bile duct without cholangitis or cholecystitis without obstruction Status: Acute Assessment and Plan: The patient was admitted for RUQ abdominal pain with elevated LFTs and Lipase with CT Abd/Pelvis with choledocholithiasis with distal common bile duct obstruction resulting in intrahepatic and extra hepatic biliary dilatation, gallbladder distention and likely secondary cholecystitis, and pancreatitis. Mild right hydroureteronephrosis of unclear etiology. Patient placed NPO, Started on IV Fluids with broadspectum Abx IV Zosyn with a consult to GI. Dr. Viera preformed an ERCP with removal of calculi with spincterotomy and recommended continuing Liquid diet and NPO after midnight Monitor LFTs overnight and Dr. Solis Surgeon to hopefully do Lap kay in the morning Continue monitoring. PRN Pain control and antiemetics (2) Acute pancreatitis: Qualifiers: Acute pancreatitis complication: unspecified Pancreatitis type: unspecified pancreatitis type Qualified Code(s): K85.90 - Acute pancreatitis without necrosis or infection, unspecified Code(s): K85.90 - Acute pancreatitis without necrosis or infection, unspecified Status: Acute Assessment and Plan: Lipase elevated at 1500. From Choledocholithiasis. Recheck in the morning. PRN pain medications (3) Hypercholesteremia: Code(s): E78.00 - Pure hypercholesterolemia, unspecified Status: Acute Assessment and Plan: Continue statin (4) History of gastroesophageal reflux (GERD): Code(s): Z87.19 - Personal history of other diseases of the digestive system Status: Acute Assessment and Plan: PPI daily ordered (5) Bladder cancer: Code(s): C67.9 - Malignant neoplasm of bladder, unspecified Status: Acute Assessment and Plan: Follow up with his Urologist/Oncologist. Stable no issues. (6) Hypertension: Code(s): I10 - Essential (primary) hypertension Status: Acute Assessment and Plan: BP stable 132/56. Continue monitoring. Time Spent With Patient Time with patient: 25 - 35 minutes Subjective Date/time seen: 06/30/21 14:47 Interval history: Date of Service 06/30/21: The patient reports feeling out of it since his ERCP procedure. He is having some mild abdominal discomfort but denies nausea, vomiting, fever, chills. He is otherwise feeling well, denies chest pain, SOB, cough, leg swelling, calf pain, or any other symptoms at this time. Review of Systems Review of Systems: All systems reviewed & are unremarkable except as noted in HPI and below Exam Narrative: General: 81-year-old man sitting up in bed with a popsicle in his hand and at bedside. Appears comfortable. In no acute distress. Skin: No jaundice or cyanosis. Good skin turgor. Neck: Full range of motion. Supple. Respiratory: Lungs are clear to auscultation bilaterally. No bony chest wall tenderness. Cardiovascular: The heart has a regular rate and rhythm without murmur. Lower extremities: No lower extremity edema. Distal pulses are easily palpated. No calf tenderness to palpation. Gastrointestinal: TTP RUQ. No rebound or guarding. The abdomen is soft and nondistended with active bowel sounds. Psychiatric: Lucid and oriented. Memory intact. Neurologic: No focal deficits. Speech is clear. No facial drooping. Objective Data Vital Signs Vital Signs: Vital Signs - 24 hr 06/29/21 20:00 06/29/21 21:29 06/30/21 06:00 Temperature 97.4 F L 97.3 F L Pulse Rate 86 78 94 Respiratory Rate 20 16 16 Blood Pressure 138/62 132/56 L Pulse Oximetry 96 95 95 06/30/21 11:45 06/30/21 13:12 06/30/21 13:22 Temperature 97.7 F 98.5 F Pulse Rate 85 79 67 Respiratory Rate 18 14 15 Blood Pressure 140/63 144/82 H 138/71 Pulse Oximetry 96 97 97 06/30/21 13:32 06/30/21
[2021-06-30] MEDS: HYDROcodone/acetaminophen (*CRX) 5-325 MG TABLET 1 TAB PO (16:23)
[2021-06-30] MEDS: ATORVASTATIN 40 MG TABLET PO (16:23)
[2021-06-30] MEDS: amLODIPine BESYLATE 5 MG TABLET PO (16:23)
--- NOTE | 2021-06-30 16:23 | PM.PNGS ---
Progress Note: A&P Assessment and Plan (1) Choledocholithiasis: Code(s): K80.50 - Calculus of bile duct without cholangitis or cholecystitis without obstruction Status: Acute Assessment and Plan: ERCP with sphincterotomy and removal of small stones, debri, and sludge today. Labs will be repeated in the morning. Tentatively on the OR schedule for a laparoscopic cholecystectomy tomorrow. Patient had no further questions today regarding the surgery. Plan to proceed tomorrow if patient doing well. Subjective Subjective Date/Time Seen: 06/30/21 16:23 Patient reports: pain is less and afebrile Interval history: Patient seen this afternoon following his ERCP which was successful. He reports having still some upper abdominal pain, but mild. No nausea. No other specific complaints at this time. Review of Systems Gastrointestinal: Gastrointestinal: Reports as per HPI and Reports no additional gastrointestinal complaints Exam Const: General: comfortable, no acute distress and awake Orientation/consciousness: patient oriented x3 GI: Inspection: non-distended GI Palp: Yes Soft to palpation, Yes Tenderness to palpation present (GI) (upper abd) and No Guarding due to palpation present (GI) Auscultation: normal bowel sounds Skin: General skin exam: normal color Neuro: General: no focal motor deficits Psych: Mental Status: mental status grossly normal Insight: Good insight present (Psych) Judgement: Good judgement present (Psych) Objective Data Vital Signs Vital Signs: Vital Signs - 24 hr 06/29/21 20:00 06/29/21 21:29 06/30/21 06:00 Temperature 97.4 F L 97.3 F L Pulse Rate 86 78 94 Respiratory Rate 20 16 16 Blood Pressure 138/62 132/56 L Pulse Oximetry 96 95 95 06/30/21 11:45 06/30/21 13:12 06/30/21 13:22 Temperature 97.7 F 98.5 F Pulse Rate 85 79 67 Respiratory Rate 18 14 15 Blood Pressure 140/63 144/82 H 138/71 Pulse Oximetry 96 97 97 06/30/21 13:32 06/30/21 14:00 Temperature 96.9 F L Pulse Rate 58 L 55 L Respiratory Rate 16 16 Blood Pressure 150/73 H 155/57 H Pulse Oximetry 98 97 Intake/Output Intake/Output: Intake & Output 06/27/21 06/28/21 06/29/21 06/30/21 23:59 23:59 23:59 23:59 Intake Total 3600 1600 Balance 3600 1600 Meds/Results Medications: Active Medications Generic Name Dose Route Start Last Admin Trade Name Freq PRN Reason Stop Dose Admin Hydrocodone Bitart/Acetaminophen 1 tab 06/29/21 14:07 Hydrocodone/Acetaminophen (*Crx) 5-325 Mg Tablet PO Q6H PRN pain 4-6 Amlodipine Besylate 5 mg 06/29/21 14:30 06/29/21 14:47 Amlodipine Besylate 5 Mg Tablet PO 5 mg DAILY CHRIS Administration Atorvastatin Calcium 40 mg 06/29/21 14:30 06/29/21 14:47 Atorvastatin 40 Mg Tablet PO 40 mg DAILY CHRIS Administration Piperacillin/Tazobactam/Dextrose 3.375 gm in 50 mls @ 100 mls/hr 06/29/21 12:00 06/30/21 14:31 Zosyn 3.375 Gm/D5w 50ml Pm IVPB Infused Q6H CHRIS Infusion Sodium Chloride 1,000 mls @ 75 mls/hr 06/29/21 07:45 06/30/21 09:00 Normal Saline Iv IV CONT 75 mls/hr .[id number] CHRIS Infusion Losartan Potassium 50 mg 06/29/21 14:30 06/30/21 08:59 Losartan Potassium 50 Mg Tablet PO 50 mg DAILY CHRIS Administration Meclizine HCl 25 mg 06/29/21 17:00 Meclizine Hcl 25 Mg Tablet PO BID PRN Dizziness Morphine Sulfate 4 mg 06/29/21 07:41 06/30/21 14:03 Morphine Sulfate (*Crx) 4 Mg/Ml Inj IV PUSH 4 mg Q2H PRN Administration Pain Rated 7-10 Multivitamins Therapeutic 1 tablet 06/30/21 09:00 06/30/21 09:00 Multivitamins Therapeutic Tab (*Bkc) PO 1 tablet DAILY CHRIS Administration Ondansetron HCl 4 mg 06/29/21 07:41 06/29/21 09:04 Ondansetron Inj 4 Mg/2 Ml Vial IV PUSH 4 mg Q4H PRN Administration Nausea Pantoprazole Sodium 40 mg 06/30/21 09:00 06/30/21 08:59 Pantoprazole 40 Mg Tablet PO 40 mg QAM CHRIS Administration Tamsulosin HCl 0.4 mg
[2021-06-30] MEDS: SODIUM CHLORIDE 0.9% IV 1,000 ML 75 ML IV CONT (19:42)
[2021-06-30] MEDS: TAMSULOSIN HCL 0.4 MG CAPSULE PO (20:55)
[2021-07-01] VITALS (12 sets, daily range): BP systolic 117–142; BP diastolic 48–70; PULSE 57–100; RESP 10–20; TEMP 36–37.6; O2SAT 91–100
[2021-07-01 06:20] LABS: Basophils Absolute Auto 0.1 K/mm3 (0.0-0.1); Basophils Percent Auto 0.6 % (0.2-1.2); Eosinophils Absolute Auto 0.4 K/mm3 (0-0.3); Hematocrit 32.9 % (42.0-52.0); Hemoglobin 10.8 g/dL (14.0-18.0); Immature Granulocyte Absolute 0.03 K/mm3 (0.00-0.031); Immature Granulocyte Percent A 0.3 % (0-0.5); Lymphocytes Absolute Auto 1.39 K/mm3 (0.9-3.2); Lymphocytes Percent Auto 15.7 % (18.3-44.2); Mean Corpuscular HGB Conc 32.8 g/dl (32-36); Mean Corpuscular Hemoglobin 30.9 pg (26-34); Mean Corpuscular Volume 94.3 fl (80-100); Mean Platelet Volume 9.6 fl (7.4-10.4); Monocytes Absolute Auto 0.7 K/mm3 (0.1-0.6); Monocytes Percent Auto 7.4 % (2.6-8.5); Neutrophils Absolute Auto 6.4 K/mm3 (1.3-6.7); Platelet Count Result 232 k/mm3 (150-375); Red Blood Count 3.49 M/mm3 (4.6-6.20); Red Cell Distribution Width 12.6 % (11.5-14.5); White Blood Count 8.8 K/mm3 (4.5-10.0)
[2021-07-01 06:37] LABS: Alanine Aminotransferase 85 U/L (4-50); Albumin Level 2.5 g/dL (3.5-5.1); Alkaline Phosphatase 257 U/L (38-126); Anion Gap 6 mmol/L (8-16); Aspartate Amino Transferase 72 U/L (17-59); Bilirubin,Total 0.9 mg/dL (0.2-1.3); Blood Urea Nitrogen 9 mg/dL (9-20); Calcium 8.2 mg/dL (8.4-10.2); Carbon Dioxide 24 mmol/L (22-30); Chloride 106 mmol/L (98-107); Estimated CRCL calculation 49 ml/min; Estimated Glomerular Filt Rate > 60; Glucose 84 mg/dL (65-110); Lipase 1025 U/L (23-300); Magnesium 1.8 mg/dL (1.6-2.3); Sodium 136 mmol/L (137-145)
[2021-07-01] MEDS: amLODIPine BESYLATE 5 MG TABLET PO (08:24)
[2021-07-01] MEDS: SODIUM CHLORIDE 0.9% IV 1,000 ML 75 ML IV CONT (10:11)
--- NOTE | 2021-07-01 10:30 | WPDHPUPDATE1 ---
History and Physical Update Update Date/Time: 07/01/21 10:30 History and Physical has been reviewed, including an updated exam of the patient. There are NO changes in the patient's condition. Risks, benefits, and alternatives have been discussed and questions answered. Patient agrees to proceed with procedure.
--- NOTE | 2021-07-01 11:00 | PC.NURSE ---
To surgery per bed. IV saline locked. Report given to JULIO Baez.
[2021-07-01] MEDS: LACTATED RINGERS 1,000 ML 30 ML IV CONT ×3 (11:45→13:35)
--- NOTE | 2021-07-01 11:52 | WPDANESEPPF ---
Anes - Initial Pre Proc Eval Procedure: Operation Date: 06/30/21 12:30 Proposed Procedures p Endoscopic Retro Cholangiopancreatogram - Trevor Contreras MD Operation Date: 07/01/21 12:30 Proposed Procedures p Laparoscopic Cholecystectomy - Kim Che MD Date/Time: 07/01/21 11:52 Surgeon: Adriana Irizarry PA-C Pre Op Diagnosis: Choledocolithiasis/cholecystitis Patient Data Age: 81 Gender: M Height: 1.73 m Weight: 71 kg Last Vital Signs Temp 36.6 C 07/01/21 06:00 Pulse 80 07/01/21 06:00 Resp 18 07/01/21 06:00 BP 117/55 L 07/01/21 06:00 Pulse Ox 96 07/01/21 06:00 Allergies Allergy/AdvReac Type Severity Reaction Status Date / Time No Known Allergies Allergy Verified 06/29/21 04:21 Home Medications Medication Instructions Recorded Confirmed Type amlodipine 5 mg PO DAILY 04/05/20 06/29/21 History atorvastatin [Lipitor] 40 mg PO DAILY 04/05/20 06/29/21 History losartan 50 mg PO DAILY 04/05/20 06/29/21 History omeprazole 20 mg PO DAILY 04/05/20 06/29/21 History tamsulosin 0.4 mg PO DAILY 04/05/20 06/29/21 History meclizine 25 mg tablet 25 mg PO BID 01/07/21 06/29/21 History multivitamin 1 tablet PO DAILY 01/07/21 06/29/21 History ciprofloxacin HCl [Cipro] 500 mg PO Q12H #14 tablet 06/25/21 06/29/21 Rx hydrocodone-acetaminophen 1 tablet PO Q6H PRN #12 tablet 06/25/21 06/29/21 Rx metronidazole 500 mg PO Q8H #21 tablet 06/25/21 06/29/21 Rx ondansetron 4 mg PO Q6H PRN #10 tablet 06/25/21 06/29/21 Rx Laboratory Tests 07/01/21 07/01/21 05:22 05:22 WBC 8.8 K/mm3 K/mm3 (4.5-10.0) RBC 3.49 M/mm3 L M/mm3 (4.6-6.20) Hgb 10.8 g/dL L g/dL (14.0-18.0) Hct 32.9 % L % (42.0-52.0) MCV 94.3 fl fl (80-100) MCH 30.9 pg pg (26-34) MCHC 32.8 g/dl g/dl (32-36) RDW 12.6 % % (11.5-14.5) Plt Count 232 k/mm3 k/mm3 (150-375) MPV 9.6 fl fl (7.4-10.4) Immature Gran % (Auto) 0.3 % % (0-0.5) Neut % (Auto) 72.0 % % (45.5-73.1) Lymph % (Auto) 15.7 % L % (18.3-44.2) [place] % (Auto) 7.4 % % (2.6-8.5) Eos % (Auto) 4.0 % % (0-4.4) Baso % (Auto) 0.6 % % (0.2-1.2) Lymph # (Auto) 1.39 K/mm3 K/mm3 (0.9-3.2) [place] # (Auto) 0.7 K/mm3 H K/mm3 (0.1-0.6) Eos # (Auto) 0.4 K/mm3 H K/mm3 (0-0.3) Baso # (Auto) 0.1 K/mm3 K/mm3 (0.0-0.1) Abs Immat Gran (auto) 0.03 K/mm3 K/mm3 (0.00-0.031) Absolute Neuts (auto) 6.4 K/mm3 K/mm3 (1.3-6.7) Absolute Nucleated RBC 0.0 K/mm3 K/mm3 (0.0-0.012) Nucleated RBC % 0.0 % % (0.0-0.2) Sodium 136 mmol/L L mmol/L (137-145) Potassium 4.0 mmol/L mmol/L (3.4-5.0) Chloride 106 mmol/L mmol/L (98-107) Carbon Dioxide 24 mmol/L mmol/L (22-30) Anion Gap 6 mmol/L L mmol/L (8-16) BUN 9 mg/dL mg/dL (9-20) Creatinine 1.00 mg/dL mg/dL (0.7-1.3) Estim Creat Clear Calc 49 ml/min ml/min Estimated GFR > 60 (59 - ) Glucose 84 mg/dL mg/dL (65-110) Calcium 8.2 mg/dL L mg/dL (8.4-10.2) Magnesium 1.8 mg/dL mg/dL (1.6-2.3) Total Bilirubin 0.9 mg/dL mg/dL (0.2-1.3) AST 72 U/L H U/L (17-59) ALT 85 U/L H U/L (4-50) Alkaline Phosphatase 257 U/L H U/L (38-126) Total Protein 5.0 g/dL L g/dL (6.3-8.2) Albumin 2.5 g/dL L g/dL (3.5-5.1) Lipase 1025 U/L H U/L (23-300) Patient hx anesthesia problems: none Family hx anesthesia problems: none Results Review: All pre-operative results and documents have been reviewed as part of the pre-operative evaluation. [facility] Past Medical History Medical History (Updated 06/30/21 @ 09:34 by Mark Bullock MD) Acute pancreatitis Arthritis Bladder cancer Cataract RT cataract surgery on 03/17/20. Choledocholithiasis Elevated liver enzymes Gallstone pancreatitis History of gastroesophageal reflux
--- NOTE | 2021-07-01 12:31 | PM.IMPN ---
Progress Note: A&P Assessment and Plan (1) Choledocholithiasis: Code(s): K80.50 - Calculus of bile duct without cholangitis or cholecystitis without obstruction Status: Acute Assessment and Plan: The patient was admitted for RUQ abdominal pain with elevated LFTs and Lipase with CT Abd/Pelvis with choledocholithiasis with distal common bile duct obstruction resulting in intrahepatic and extra hepatic biliary dilatation, gallbladder distention and likely secondary cholecystitis, and pancreatitis. Mild right hydroureteronephrosis of unclear etiology. Patient placed NPO, Started on IV Fluids with broadspectum Abx IV Zosyn with a consult to GI. Dr. Viera preformed an ERCP with removal of calculi with spincterotomy Patient going for Lap Christina today with Dr. Solis and patient NPO Continue monitoring. PRN Pain control and antiemetics (2) Acute pancreatitis: Qualifiers: Acute pancreatitis complication: unspecified Pancreatitis type: unspecified pancreatitis type Qualified Code(s): K85.90 - Acute pancreatitis without necrosis or infection, unspecified Code(s): K85.90 - Acute pancreatitis without necrosis or infection, unspecified Status: Acute Assessment and Plan: Lipase improved to 1025. From Choledocholithiasis. Recheck in the morning. PRN pain medications (3) Hypercholesteremia: Code(s): E78.00 - Pure hypercholesterolemia, unspecified Status: Acute Assessment and Plan: Continue statin (4) History of gastroesophageal reflux (GERD): Code(s): Z87.19 - Personal history of other diseases of the digestive system Status: Acute Assessment and Plan: PPI daily ordered (5) Bladder cancer: Code(s): C67.9 - Malignant neoplasm of bladder, unspecified Status: Acute Assessment and Plan: Follow up with his Urologist/Oncologist. Stable no issues. (6) Hypertension: Code(s): I10 - Essential (primary) hypertension Status: Acute Assessment and Plan: BP stable 117/55 Continue monitoring. Additional Plan Subjective Date/time seen: 07/01/21 12:31 Interval history: Date of Service 07/01/21: The patient reports feeling well at this time, just hungry and thirsty since he is NPO before surgery. He deneis any abdominal pain, nausea, vomiting, fever, chills. He is otherwise feeling well, denies chest pain, SOB, cough, leg swelling, calf pain, or any other symptoms at this time. Review of Systems Review of Systems: All systems reviewed & are unremarkable except as noted in HPI and below Exam Narrative: General: 81-year-old man sitting up in bed with at bedside. Appears comfortable. In no acute distress. Skin: No jaundice or cyanosis. Good skin turgor. Neck: Full range of motion. Supple. Respiratory: Lungs are clear to auscultation bilaterally. No bony chest wall tenderness. Cardiovascular: The heart has a regular rate and rhythm without murmur. Lower extremities: No lower extremity edema. Distal pulses are easily palpated. No calf tenderness to palpation. Gastrointestinal: TTP RUQ. No rebound or guarding. The abdomen is soft and nondistended with active bowel sounds. Psychiatric: Lucid and oriented. Memory intact. Neurologic: No focal deficits. Speech is clear. No facial drooping. Objective Data Vital Signs Vital Signs: Vital Signs - 24 hr 06/30/21 13:12 06/30/21 13:22 06/30/21 13:32 Temperature 98.5 F Pulse Rate 79 67 58 L Respiratory Rate 14 15 16 Blood Pressure 144/82 H 138/71 150/73 H Pulse Oximetry 97 97 98 06/30/21 14:00 06/30/21 21:54 07/01/21 06:00 Temperature 96.9 F L 97.0 F L 97.9 F Pulse Rate 55 L 72 80 Respiratory Rate 16 16 18 Blood Pressure 155/57 H 139/55 L 117/55 L Pulse Oximetry 97 95 96 07/01/21 11:49 Temperature 99.7 F H Pulse Rate 61 Respiratory Rate 18 Blood Pressure 142/58 H Pulse Oximetry 96 Intake/Output Intake/Outp
[2021-07-01] MEDS: LIDO 2%/EPINEPHRINE 1:100,000 20 ML VIAL INFILTRATE (12:55)
--- NOTE | 2021-07-01 13:24 | W.PM.PROC2 ---
Procedure Note - Detailed Date of Procedure 07/01/21 Pre-op Diagnosis Choledocolithiasis/cholecystitis Post-op Diagnosis same Procedure Performed Laparoscopic cholecystectomy Surgeon Kim Che MD Anesthesia general Indications 81-year-old male presenting with acute cholecystitis, choledocholithiasis. Patient underwent ERCP with stone removal and stent yesterday. Patient now set up for interval cholecystectomy. Findings Acute cholecystitis cholelithiasis Description of Procedure The patient was taken to the operating room placed in the supine position. After adequate induction of general anesthesia, the patient was prepped and draped in normal sterile fashion. A time-out was then performed to verify the patient's identity as well as the procedure being performed. I then made a 5 mm incision in the infraumbilical region. Through this, a Veress needle was placed into the peritoneal cavity and CO2 gas was then insufflated. After adequate pneumoperitoneum was achieved, the Veress needle was removed and a 5 mm optiview trocar was placed through this incision under direct visualization. I then placed the laparoscope through this trocar site and under direct visualization placed a further 12 mm subxiphoid port as well as 2 additional 5 mm ports in the right upper abdomen. The gallbladder was then identified and was noted to be very inflamed, distended, and full of gallstones. I was able to place a grasper at the dome of the gallbladder and this was retracted anterior and cephalad up over the liver. A 2nd retractor was then placed at the infundibulum and retracted laterally, this allowed visualization of the triangle of [place]. I then was able to visualize the cystic duct in its entirety from its proximal insertion into the gallbladder, to its distal junction with the common hepatic/common bile duct junction. At this point, I carefully skeletonized the proximal cystic duct with the [place] dissector. I then clipped and transected the proximal cystic duct. Next I visualized the cystic artery. Again the artery was skeletonized, clipped, and transected. I then used the Bovie cautery to take down the peritoneal attachments of the gallbladder off the liver bed. This was difficult given the amount of inflammation in the posterior space, the gallbladder wall was also very friable. Once the gallbladder specimen was completely detached, an endo-pouch was placed through the 12 mm port site. I then placed the gallbladder specimen into the Endo pouch and removed the endo-pouch from the 12 mm port site. The specimen will now be sent to pathology for further review. I then copiously irrigated the right upper quadrant. Some mild oozing was noted in the liver bed and this was controlled with the bovie cautery. I then placed some hemostatic powder in the liver bed. Hemostasis was noted in the liver bed, the clips were noted to be in good position on both the cystic duct stump and the cystic artery stump. No other pathology was noted in the right upper quadrant. I then moved the laparoscope to the subxiphoid port. No iatrogenic injury or other pathology was noted in the lower abdomen. I then closed the 12 mm trocar site under direct visualization using the Blade cone and 0 Vicryl suture. At this point, the abdomen was desufflated and all ports removed. All port sites were then closed with 4.O Monocryl subcuticular sutures. Dermabond was placed on each incision. The patient tolerated the procedure well, was extubated in the operating room postoperative and will be transferred to the recovery room in stable condition Estimated Blood Loss 50 Drains No Packing No Pathology yes Complications No immediate complications Condition stable Disposition PACU
[2021-07-01] MEDS: fentaNYL CITRATE INJ (*CRX) 100 MCG/2 ML VIAL 25 MCG IV PUSH ×3 (14:00→14:10)
--- NOTE | 2021-07-01 15:36 | WPDGIPROGNO ---
Progress Note: A&P Assessment and Plan (1) Choledocholithiasis: Code(s): K80.50 - Calculus of bile duct without cholangitis or cholecystitis without obstruction Status: Acute Assessment and Plan: ercp yesterday with removal small stones and today just completed [facility] recovery per surgery (2) Gallstone pancreatitis: Code(s): K85.10 - Biliary acute pancreatitis without necrosis or infection Status: Acute Assessment and Plan: diet order per surgical team medical management (3) Elevated liver enzymes: Code(s): R74.8 - Abnormal levels of other serum enzymes Status: Acute Assessment and Plan: liver enzymes coming down after ercp (4) Hypertension: Code(s): I10 - Essential (primary) hypertension Status: Acute Subjective Date/time seen: 07/01/21 15:36 Interval history: ercp yesterday with sphincterotomy and removal small stones/sludge, just came back to his room from [facility]. Review of Systems Review of Systems: All systems reviewed & are unremarkable except as noted in HPI and below Exam Const: General: comfortable and no acute distress HENMT: General nose exam: Normal nares present Eyes: Sclera: sclerae normal Neck: Neck: supple Resp: Effort & Inspection: normal respiratory effort Cardio: Rate: regular rate GI: GI Palp: Yes Soft to palpation Auscultation: normal bowel sounds Other: normal tenderness from recent surgery Skin: General skin exam: no rashes or lesions noted Neuro: Speech: normal speech Motor exam (neuro): Normal motor muscle tone present throughout Extrem: General: normal to inspection Psych: Mental Status: mental status grossly normal Objective Data Vital Signs Vital Signs: Vital Signs - 24 hr 06/30/21 21:54 07/01/21 06:00 07/01/21 11:49 Temperature 97.0 F L 97.9 F 99.7 F H Pulse Rate 72 80 61 Respiratory Rate 16 18 18 Blood Pressure 139/55 L 117/55 L 142/58 H Pulse Oximetry 95 96 96 07/01/21 13:35 07/01/21 13:50 07/01/21 14:07 Temperature 98.0 F Pulse Rate 80 71 74 Respiratory Rate 13 12 12 Blood Pressure 129/62 134/59 L 133/59 L Pulse Oximetry 100 97 98 07/01/21 14:22 Temperature Pulse Rate 86 Respiratory Rate 10 L Blood Pressure 123/64 Pulse Oximetry 97 Intake/Output Intake/Output: Intake & Output 06/28/21 06/29/21 06/30/21 07/01/21 23:59 23:59 23:59 23:59 Intake Total 3600 3265 2700 Balance 3600 3265 2700 Meds/Results Medications: Active Medications Generic Name Dose Route Start Last Admin Trade Name Freq PRN Reason Stop Dose Admin Hydrocodone Bitart/Acetaminophen 1 tab 06/29/21 14:07 06/30/21 16:23 Hydrocodone/Acetaminophen (*Crx) 5-325 Mg Tablet PO 1 tab Q6H PRN Administration pain 4-6 Hydrocodone Bitart/Acetaminophen 1 tab 07/01/21 14:53 Hydrocodone/Acetaminophen (*Crx) 5-325 Mg Tablet PO Q4H PRN Pain Rated 4-6 Amlodipine Besylate 5 mg 06/29/21 14:30 07/01/21 08:24 Amlodipine Besylate 5 Mg Tablet PO 5 mg DAILY CHRIS Administration Atorvastatin Calcium 40 mg 06/29/21 14:30 06/30/21 16:23 Atorvastatin 40 Mg Tablet PO 40 mg DAILY CHRIS Administration Sodium Chloride 1,000 mls @ 75 mls/hr 06/29/21 07:45 07/01/21 10:11 Normal Saline Iv IV CONT 75 mls/hr .[id number] CHRIS Administration Losartan Potassium 50 mg 06/29/21 14:30 06/30/21 08:59 Losartan Potassium 50 Mg Tablet PO 50 mg DAILY CHRIS Administration Meclizine HCl 25 mg 06/29/21 17:00 Meclizine Hcl 25 Mg Tablet PO BID PRN Dizziness Morphine Sulfate 4 mg 06/29/21 07:41 06/30/21 14:03 Morphine Sulfate (*Crx) 4 Mg/Ml Inj IV PUSH 4 mg Q2H PRN Administration Pain Rated 7-10 Multivitamins Therapeutic 1 tablet 06/30/21 09:00 06/30/21 09:00 Multivitamins Therapeutic Tab (*Bkc) PO 1 tablet DAILY CHRIS Administration Ondansetron HCl 4 mg 06/29/21 07:41 06/29/21 09:04 Ondansetron Inj 4 Mg/2 Ml Via
[2021-07-01] MEDS: LOSARTAN POTASSIUM 50 MG TABLET PO (15:41)
[2021-07-01] MEDS: PANTOPRAZOLE 40 MG TABLET PO (15:41)
[2021-07-01] MEDS: ATORVASTATIN 40 MG TABLET PO (15:41)
[2021-07-01] MEDS: MULTIVITAMINS THERAPEUTIC TAB (*BKC) 1 TABLET PO (15:41)
[2021-07-01] MEDS: TAMSULOSIN HCL 0.4 MG CAPSULE PO (21:10)
[2021-07-02] MEDS: SODIUM CHLORIDE 0.9% IV 1,000 ML 75 ML IV CONT (05:37)
[2021-07-02 06:21] VITALS: BP 142/73; PULSE 91; RESP 18; TEMP 36.9; O2SAT 97
[2021-07-02 06:23] LABS: Hematocrit 37.5 % (42.0-52.0); Hemoglobin 12.6 g/dL (14.0-18.0); Mean Corpuscular HGB Conc 33.6 g/dl (32-36); Mean Corpuscular Hemoglobin 31.6 pg (26-34); Mean Platelet Volume 9.6 fl (7.4-10.4); Platelet Count Result 296 k/mm3 (150-375); Red Blood Count 3.99 M/mm3 (4.6-6.20); Red Cell Distribution Width 12.5 % (11.5-14.5); White Blood Count 10.2 K/mm3 (4.5-10.0)
[2021-07-02 06:31] LABS: Alanine Aminotransferase 93 U/L (4-50); Alkaline Phosphatase 252 U/L (38-126); Anion Gap 8 mmol/L (8-16); Aspartate Amino Transferase 103 U/L (17-59); Bilirubin,Total 0.9 mg/dL (0.2-1.3); Blood Urea Nitrogen 9 mg/dL (9-20); Calcium 8.3 mg/dL (8.4-10.2); Carbon Dioxide 24 mmol/L (22-30); Chloride 102 mmol/L (98-107); Estimated CRCL calculation 49 ml/min; Estimated Glomerular Filt Rate > 60; Glucose 94 mg/dL (65-110); Lipase 215 U/L (23-300); Potassium 3.6 mmol/L (3.4-5.0); Sodium 134 mmol/L (137-145)
[2021-07-02] MEDS: PANTOPRAZOLE 40 MG TABLET PO (08:19)
[2021-07-02] MEDS: LOSARTAN POTASSIUM 50 MG TABLET PO (08:19)
[2021-07-02] MEDS: MULTIVITAMINS THERAPEUTIC TAB (*BKC) 1 TABLET PO (08:19)
--- NOTE | 2021-07-02 09:49 | PM.PNGS ---
Progress Note: A&P Assessment and Plan (1) Choledocholithiasis: Code(s): K80.50 - Calculus of bile duct without cholangitis or cholecystitis without obstruction Status: Acute Assessment and Plan: POD#1 and doing well from a surgical standpoint. Pain well-controlled. Will advance to a low fat diet. Okay to discharge from our standpoint when okay with medicine. Follow-up in 2 weeks. Additional Plan I have discussed the and plan of care with Dr. Che. Subjective Subjective Date/Time Seen: 07/02/21 09:49 Post Op day: 1 (lap cholecystectomy) Patient reports: tolerating liquids well, flatus, diarrhea and afebrile Interval history: Patient seen and examined this morning. He reports minimal tenderness at incisions. He denies any nausea, vomiting, or bloating. He reports having pelvic pressure and difficulty urinating. Reports a few loose stools since surgery. Only on clear liquids this morning. No other complaints at this time. Review of Systems Review of Systems: All systems reviewed & are unremarkable except as noted in HPI and below Constitutional: Constitutional: Reports as per HPI, Reports no additional constitutional complaints, Denies chills and Denies fever(s) Cardiovascular: Cardiovascular: Reports no additional cardiovascular complaints, Denies chest pain and Denies leg edema Respiratory: Respiratory: Reports no additional respiratory complaints, Denies cough and Denies dyspnea Gastrointestinal: Gastrointestinal: Reports as per HPI and Reports no additional gastrointestinal complaints Genitourinary: Genitourinary: Reports as per HPI and Reports urinary urgency Neurologic: Reports system reviewed and no additional complaints, except as documented, Denies Abnormal speech present and Denies focal weakness Exam Const: General: comfortable, no acute distress, alert and awake Orientation/consciousness: patient oriented x3 GI: Inspection: non-distended and incision (Abdominal incisions clean and dry, glue intact.) GI Palp: Yes Soft to palpation and Yes Tenderness to palpation present (GI) (minimal incisional) Auscultation: normal bowel sounds Skin: General skin exam: normal color Neuro: General: moves all extremities and no focal motor deficits Extrem: General: no clubbing, cyanosis or edema and no calf tenderness Psych: Mental Status: mental status grossly normal Insight: Good insight present (Psych) Judgement: Good judgement present (Psych) Objective Data Vital Signs Vital Signs: Vital Signs - 24 hr 07/01/21 11:49 07/01/21 13:35 07/01/21 13:50 Temperature 99.7 F H 98.0 F Pulse Rate 61 80 71 Respiratory Rate 18 13 12 Blood Pressure 142/58 H 129/62 134/59 L Pulse Oximetry 96 100 97 07/01/21 14:07 07/01/21 14:22 07/01/21 15:42 Temperature 96.8 F L Pulse Rate 74 86 57 L Respiratory Rate 12 10 L 20 Blood Pressure 133/59 L 123/64 131/48 L Pulse Oximetry 98 97 97 07/01/21 16:00 07/01/21 19:44 07/01/21 20:00 Temperature Pulse Rate Respiratory Rate Blood Pressure Pulse Oximetry 97 91 94 07/01/21 22:04 07/02/21 06:21 Temperature 99.0 F 98.5 F Pulse Rate 100 91 Respiratory Rate 18 18 Blood Pressure 134/70 142/73 H Pulse Oximetry 96 97 Intake/Output Intake/Output: Intake & Output 06/29/21 06/30/21 07/01/21 07/02/21 23:59 23:59 23:59 23:59 Intake Total 3600 3265 4050 460 Output Total 200 Balance 3600 3265 4050 260 Meds/Results Medications: Active Medications Generic Name Dose Route Start Last Admin Trade Name Freq PRN Reason Stop Dose Admin Hydrocodone Bitart/Acetaminophen 1 tab 06/29/21 14:07 06/30/21 16:23 Hydrocodone/Acetaminophen (*Crx) 5-325 Mg Tablet PO 1 tab Q6H PRN Administration pain 4-6 Hydrocodone Bitart/Acetaminophen 1 tab 07/01/21 14:53 Hydrocodone/Acetaminophen (*Crx) 5-325 Mg Tablet PO Q4H PRN Pain Rated 4-6 Amlodipine Besylate 5 mg 06/29/21 14:30 07/01/21 08:24 Amlodipine Besylate
[2021-07-02 11:31] LABS: Add Urine Microscopic? YES; Appearance Urine Clear (Clear); Bilirubin Urine Negative (Negative); Blood Urine Negative (Negative); Color Urine Yellow (Yellow); Glucose Urine UA Negative (Negative); Ketones Urine Trace mg/dL (Negative); Leukocyte Esterase Ur Negative LEU/UL (Negative); Mucus Urine Rare /lpf; Nitrate Urine Negative (Negative); Protein Urine 1+ mg/dL (Negative); RBC Urine 0-2 /hpf (0-2); Squamous Epithelial Cell Urine Rare /hpf (Few); Urobilinogen Urine Negative mg/dL (<2.0)
--- NOTE | 2021-07-02 11:45 | PM.IMPN ---
Progress Note: A&P Assessment and Plan (1) Frequent urination: Code(s): R35.0 - Frequency of micturition Status: Acute Assessment and Plan: Patient reports having some bladder fullness, frequent urination, burning discomfort to his bladder when he urinates which all began after his surgery. He is currently undergoing bladder cancer treatment and he is on Flomax for BPH. His symptoms could be due to development of urinary tract infection verses irritation after Alcantar catheter was placed during his surgical procedure yesterday. We will send a urinalysis with reflux culture Continue monitoring bladder scans and postvoid residuals to make sure he is not retaining urine Continue monitoring. (2) Choledocholithiasis: Code(s): K80.50 - Calculus of bile duct without cholangitis or cholecystitis without obstruction Status: Acute Assessment and Plan: The patient was admitted for RUQ abdominal pain with elevated LFTs and Lipase with CT Abd/Pelvis with choledocholithiasis with distal common bile duct obstruction resulting in intrahepatic and extra hepatic biliary dilatation, gallbladder distention and likely secondary cholecystitis, and pancreatitis. Mild right hydroureteronephrosis of unclear etiology. Dr. Viera preformed an ERCP with removal of calculi with spincterotomy 06/30/21 Patient went for Lap Christina 07/01/[address] Che and tolerated procedure well. Stilling eating and drinking without any issues Continue monitoring. PRN Pain control and antiemetics (3) Acute pancreatitis: Qualifiers: Acute pancreatitis complication: unspecified Pancreatitis type: unspecified pancreatitis type Qualified Code(s): K85.90 - Acute pancreatitis without necrosis or infection, unspecified Code(s): K85.90 - Acute pancreatitis without necrosis or infection, unspecified Status: Acute Assessment and Plan: Lipase normal today PRN pain medications (4) Hypercholesteremia: Code(s): E78.00 - Pure hypercholesterolemia, unspecified Status: Acute Assessment and Plan: Continue statin (5) History of gastroesophageal reflux (GERD): Code(s): Z87.19 - Personal history of other diseases of the digestive system Status: Acute Assessment and Plan: PPI daily ordered (6) Bladder cancer: Code(s): C67.9 - Malignant neoplasm of bladder, unspecified Status: Acute Assessment and Plan: Follow up with his Urologist/Oncologist. Stable no issues. (7) Hypertension: Code(s): I10 - Essential (primary) hypertension Status: Acute Assessment and Plan: BP stable 142/72. Slightly elevated could be from IV fluids and urinary issues Continue monitoring. Additional Plan Time Spent With Patient Time with patient: 25 - 35 minutes Subjective Date/time seen: 07/02/21 11:45 Interval history: Date of Service 07/02/21: The patient reports feeling some pressure in his bladder. States everytime he drinks something he has to go to the bathroom and urine and have a bowel movement. He has been having some burning to his bladder with urination and frequent urination. He has had a alcantar catheter before and he is currently undergoing bladder cancer therapy at [facility]. he is otherwise eating and drinking without any issues. Denies chest pain, SOB, cough, leg swelling, calf pain, fever, chills, or any other symptoms at this time. Review of Systems Review of Systems: All systems reviewed & are unremarkable except as noted in HPI and below Exam Narrative: General: 81-year-old man talking around pulling his IV pole. Appears comfortable. In no acute distress. Skin: No jaundice or cyanosis. Good skin turgor. Neck: Full range of motion. Supple. Respiratory: Lungs are clear to auscultation bilaterally. No bony chest wall tenderness. Cardiovascular: The
[2021-07-02 14:00] VITALS: BP 160/74; PULSE 63; RESP 16; TEMP 37.1; O2SAT 95
[2021-07-02] MEDS: amLODIPine BESYLATE 5 MG TABLET PO (16:47)
[2021-07-02] MEDS: ATORVASTATIN 40 MG TABLET PO (16:47)
--- NOTE | 2021-07-02 17:52 | WPDGIPROGNO ---
Progress Note: A&P Assessment and Plan (1) Choledocholithiasis: Code(s): K80.50 - Calculus of bile duct without cholangitis or cholecystitis without obstruction Status: Acute Assessment and Plan: treated with ercp and lap kay seems to be doing better but now with bladder issues (patient has h/o bladder cancer) will follow from [place] (2) Gallstone pancreatitis: Code(s): K85.10 - Biliary acute pancreatitis without necrosis or infection Status: Acute Assessment and Plan: tolerating diet (3) Elevated liver enzymes: Code(s): R74.8 - Abnormal levels of other serum enzymes Status: Acute Assessment and Plan: stable (4) Bladder cancer: Code(s): C67.9 - Malignant neoplasm of bladder, unspecified Status: Acute (5) Frequent urination: Code(s): R35.0 - Frequency of micturition Status: Acute Assessment and Plan: pending UA, by primary h/o bladder cancer Subjective Date/time seen: 07/02/21 17:52 Interval history: doing well from surgery but now he is having bladder fullness, frequent urination, burning discomfort to his bladder since midnight (had alcantar catheter during surgery) and now is main complain. Tolerating diet. Review of Systems Review of Systems: All systems reviewed & are unremarkable except as noted in HPI and below Exam Const: General: comfortable, no acute distress, alert and awake Orientation/consciousness: patient oriented x3 HENMT: General nose exam: Normal nares present Eyes: Sclera: sclerae normal Neck: Neck: supple Resp: Auscultation: clear to auscultation bilaterally Cardio: Rate: regular rate GI: Inspection: non-distended and incision (Abdominal incisions clean and dry, glue intact.) GI Palp: Yes Soft to palpation and Yes Tenderness to palpation present (GI) (minimal incisional) Auscultation: normal bowel sounds Skin: General skin exam: normal color Neuro: General: moves all extremities and no focal motor deficits Speech: normal speech Extrem: General: normal to inspection, no clubbing, cyanosis or edema and no calf tenderness Psych: Mental Status: mental status grossly normal Insight: Good insight present (Psych) Judgement: Good judgement present (Psych) Objective Data Vital Signs Vital Signs: Vital Signs - 24 hr 07/01/21 19:44 07/01/21 20:00 07/01/21 22:04 Temperature 99.0 F Pulse Rate 100 Respiratory Rate 18 Blood Pressure 134/70 Pulse Oximetry 91 94 96 07/02/21 06:21 07/02/21 14:00 Temperature 98.5 F 98.7 F Pulse Rate 91 63 Respiratory Rate 18 16 Blood Pressure 142/73 H 160/74 H Pulse Oximetry 97 95 Intake/Output Intake/Output: Intake & Output 06/29/21 06/30/21 07/01/21 07/02/21 23:59 23:59 23:59 23:59 Intake Total 3600 3265 4050 1074 Output Total 750 Balance 3600 3265 4050 324 Meds/Results Medications: Active Medications Generic Name Dose Route Start Last Admin Trade Name Freq PRN Reason Stop Dose Admin Hydrocodone Bitart/Acetaminophen 1 tab 06/29/21 14:07 06/30/21 16:23 Hydrocodone/Acetaminophen (*Crx) 5-325 Mg Tablet PO 1 tab Q6H PRN Administration pain 4-6 Hydrocodone Bitart/Acetaminophen 1 tab 07/01/21 14:53 Hydrocodone/Acetaminophen (*Crx) 5-325 Mg Tablet PO Q4H PRN Pain Rated 4-6 Amlodipine Besylate 5 mg 06/29/21 14:30 07/02/21 16:47 Amlodipine Besylate 5 Mg Tablet PO 5 mg DAILY CHRIS Administration Atorvastatin Calcium 40 mg 06/29/21 14:30 07/02/21 16:47 Atorvastatin 40 Mg Tablet PO 40 mg DAILY CHRIS Administration Losartan Potassium 50 mg 06/29/21 14:30 07/02/21 08:19 Losartan Potassium 50 Mg Tablet PO 50 mg DAILY CHRIS Administration Meclizine HCl 25 mg 06/29/21 17:00 Meclizine Hcl 25 Mg Tablet PO BID PRN Dizziness Morphine Sulfate 4 mg 06/29/21 07:41 06/30/21 14:03 Morphine Sulfate (*Crx) 4 Mg/Ml Inj IV PUSH 4 mg Q2H PRN Administration Pain
[2021-07-02 20:00] VITALS: PULSE 63; RESP 16; O2SAT 95
[2021-07-02] MEDS: TAMSULOSIN HCL 0.4 MG CAPSULE PO (20:13)
[2021-07-02 22:00] VITALS: BP 147/81; PULSE 104; RESP 20; TEMP 36.7; O2SAT 98
[2021-07-03 06:00] VITALS: BP 156/92; PULSE 122; RESP 20; TEMP 36.5; O2SAT 98
[2021-07-03 06:39] LABS: Alanine Aminotransferase 101 U/L (4-50); Albumin Level 3.6 g/dL (3.5-5.1); Alkaline Phosphatase 233 U/L (38-126); Aspartate Amino Transferase 104 U/L (17-59); Bilirubin,Total 0.9 mg/dL (0.2-1.3); Lipase 125 U/L (23-300)
[2021-07-03] MEDS: LOSARTAN POTASSIUM 50 MG TABLET PO (10:03)
[2021-07-03] MEDS: amLODIPine BESYLATE 5 MG TABLET PO (10:03)
[2021-07-03] MEDS: PANTOPRAZOLE 40 MG TABLET PO (10:03)
[2021-07-03 10:26] LABS: Basophils Percent Auto 0.4 % (0.2-1.2); Eosinophils Absolute Auto 0.5 K/mm3 (0-0.3); Eosinophils Percent Auto 5.9 % (0-4.4); Hematocrit 38.2 % (42.0-52.0); Immature Granulocyte Absolute 0.05 K/mm3 (0.00-0.031); Immature Granulocyte Percent A 0.5 % (0-0.5); Lymphocytes Absolute Auto 0.76 K/mm3 (0.9-3.2); Lymphocytes Percent Auto 8.2 % (18.3-44.2); Mean Corpuscular Hemoglobin 31.3 pg (26-34); Monocytes Absolute Auto 0.5 K/mm3 (0.1-0.6); Monocytes Percent Auto 5.1 % (2.6-8.5); Neutrophils Absolute Auto 7.4 K/mm3 (1.3-6.7); Neutrophils Percent Auto 79.9 % (45.5-73.1); Platelet Count Result 323 k/mm3 (150-375); Red Blood Count 4.15 M/mm3 (4.6-6.20); Red Cell Distribution Width 12.4 % (11.5-14.5); White Blood Count 9.2 K/mm3 (4.5-10.0)
[2021-07-03 10:40] LABS: Anion Gap 10 mmol/L (8-16); Blood Urea Nitrogen 11 mg/dL (9-20); Calcium 8.9 mg/dL (8.4-10.2); Carbon Dioxide 24 mmol/L (22-30); Chloride 102 mmol/L (98-107); Estimated CRCL calculation 54 ml/min; Estimated Glomerular Filt Rate > 60; Glucose 140 mg/dL (65-110); Potassium 3.3 mmol/L (3.4-5.0); Sodium 136 mmol/L (137-145)
[2021-07-03 10:45] VITALS: O2SAT 96
[2021-07-03 11:20] LABS: Magnesium 1.8 mg/dL (1.6-2.3)
--- NOTE | 2021-07-03 11:35 | WPDURCON ---
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 CT urogram is pending for further evaluation and delineation. This to me appears more chronic in nature as he is asymptomatic. Given his normal renal function and lack of symptoms this may not require any intervention at this setting. I would recommend he follow-up with his urologist Dr. Dell Redmond. He most likely will require either a renal scan and/or cysto retrograde with possible stenting going forward. (2) Frequent urination: Code(s): R35.0 - Frequency of micturition Status: Acute Assessment and Plan: Will make sure he is on his tamsulosin. Urinalysis is not consistent with infection. Will check a bladder scan for postvoid residual. Urology Consult Note HPI Date Seen: 07/03/21 Time Seen: 11:35 Requesting Physician: Adriana Irizarry PA-C Primary Care Provider: PHYSICIAN NOT ON STAFF Consult Narrative Reason for consult: Voiding dysfunction and right hydronephrosis Narrative: Madi Jiang is a 81 year old male who has a history of bladder cancer dating back to 2018. He is managed over at [facility]. Patient most recently has been seeing Dr. Dell Redmond. Patient tells me that he had a recent cystoscopy with biopsy the revealed a high-grade carcinoma. He had completed a initiation course of BCG and then received a 3 week maintenance course which was completed in June. He is due for another cystoscopy in August. Patient was admitted to the hospital with cholecystitis. He underwent an ERCP with stone removal and stent placement on 06/30. He then underwent a laparoscopic cholecystectomy on 07/01. He has been complaining of some difficulty with voiding and were asked to see him. He also had some mild right hydronephrosis and a scan done approximately 10 days ago. A renal ultrasound done yesterday revealed increasing right hydro. Madi is completely asymptomatic with no right flank pain. Renal function is normal at a level of 0.9 and a white count of 9.2. Urinalysis has 0-2 red cells with 10-15 white cells present. He states he has nocturia times 2-3 and takes tamsulosin at home. Denies any prior prostate surgery. Review of Systems Review of Systems: All systems reviewed & are unremarkable except as noted in HPI and below PMFSH Past Medical History Medical History Acute pancreatitis Arthritis Bladder cancer Cataract RT cataract surgery on 03/17/20. Choledocholithiasis Elevated liver enzymes Gallstone pancreatitis History of gastroesophageal reflux (GERD) Hypercholesteremia Hypertension Melanoma Right rotator cuff tear Surgical History Surgical History Basal cell carcinoma excision from right ear H/O right inguinal hernia repair History of hernia surgery LT inguinal Family History Family History Father Unknown family medical history Mother , Old age Hypertension Social History Social History Smoking status: Never smoker Tobacco type: cigarettes Second hand tobacco smoke exposure: No Alcohol intake: never Alcohol use details: Rarely Substance use: never Substance use type: does not use Gender identity (if verbalized by the patient): Male Spiritual care concerns: No Meds Home Medications and Allergies Home Medications Medication Instructions Recorded Confirmed Type amlodipine 5 mg PO DAILY 04/05/20 06/29/21 History atorvastatin [Lipitor] 40 mg PO DAILY 04/05/20 06/29/21 History losartan 50 mg PO DAILY 04/05/20 1
[2021-07-03] MEDS: ATORVASTATIN 40 MG TABLET PO (12:40)
[2021-07-03] MEDS: MULTIVITAMINS THERAPEUTIC TAB (*BKC) 1 TABLET PO (12:40)
[2021-07-03 14:37] VITALS: BP 140/79; PULSE 98; RESP 16; TEMP 36.4; O2SAT 99
--- NOTE | 2021-07-03 14:38 | PM.DS ---
DS: Admitting Diagnosis Discharge Date 07/03/21 Admitting Diagnosis Abd pain DS: Discharge Diagnosis Discharge Diagnosis (1) Frequent urination: Code(s): R35.0 - Frequency of micturition Status: Acute Assessment and Plan: The patient is an 81 year old man with a history of bladder cancer currently undergoing treatment at [facility], who presented to the ER with symptoms of RUQ pain. Initial vitals showed stable BP 140/85, HR tachy 105, normal RR and O2 on RA and afebrile. He recently in the ER 06/25/21 for similar symptoms and found to have gallbladder sludge, biliary colic and discharged home to continue on low fat diet. he continued to have pain and came back in. CT abd/pelvis showed Choledocholithiasis with distal common bile duct obstruction resulting in intrahepatic and extra hepatic biliary dilatation, gallbladder distention and likely secondary cholecystitis, and pancreatitis. Mild right hydroureteronephrosis of unclear etiology. He was admitted with GI and surgical consult. He had an ERCP and had sphincterotomy and removal of calculi. Then Patient went for Lap Christina 07/01/[address] Che and tolerated procedure well. His diet was advanced without any issues. Post-op the patient was reporting some bladder fullness, frequent urination, burning discomfort to his bladder when he urinates which all began after his surgery. He is currently undergoing bladder cancer treatment and he is on Flomax for BPH. Urinalysis showed 10-15 WBC. We did a bladder scan showing 1200 cc of urine retention. Dr. Bustillos was consulted with Urology who recommended a CT Urogram showing No suspicious renal or urothelial lesion identified. Changes related to recent cholecystectomy. He was feeling much better after Valdes catheter. He need to follow up with his Urologist and Oncolgist at discharge. I will start Finasteride and a few days of antibiotics to prevent UTI from retention. Urine culture results showing no growth. He understands and agrees with the plan. All questions answered. (2) Choledocholithiasis: Code(s): K80.50 - Calculus of bile duct without cholangitis or cholecystitis without obstruction Status: Acute (3) Acute pancreatitis: Qualifiers: Acute pancreatitis complication: unspecified Pancreatitis type: unspecified pancreatitis type Qualified Code(s): K85.90 - Acute pancreatitis without necrosis or infection, unspecified Code(s): K85.90 - Acute pancreatitis without necrosis or infection, unspecified Status: Acute (4) Hypercholesteremia: Code(s): E78.00 - Pure hypercholesterolemia, unspecified Status: Acute (5) History of gastroesophageal reflux (GERD): Code(s): Z87.19 - Personal history of other diseases of the digestive system Status: Acute (6) Bladder cancer: Code(s): C67.9 - Malignant neoplasm of bladder, unspecified Status: Acute (7) Hypertension: Code(s): I10 - Essential (primary) hypertension Status: Acute DS: Summary Hospital Course Hospital Course: See above Status at Discharge Cognitive/behavioral status at discharge: Stable, improved. Time Spent with Patient Time attestation: Total time spent providing and/or coordinating discharge services: 45 Time spent: Greater than 30 minutes Exam Narrative: General: 81-year-old man sitting up in the chair watching TV. Appears comfortable. In no acute distress. Skin: No jaundice or cyanosis. Good skin turgor. Neck: Full range of motion. Supple. Respiratory: Lungs are clear to auscultation bilaterally. No bony chest wall tenderness. Cardiovascular: The heart has a regular rate and rhythm without murmur. Lower extremities: No lower extremity edema. Distal pulses are easily palpated. No calf tenderness to palpation. Gastrointestinal: Surgical sites are closed without redness or drainage. Still some TTP but No rebound or guar
== END 2021-07-03 16:00 | disposition home or self-care (01) | DRG 418 ==
LOC: ANHED 07:24 → ANH3MEDSUR 08:09
PROVIDERS: Emergency Medicine; Internal Medicine Gastroenterology; Surgery; Admitting Provider Internal Medicine; Emergency Provider Emergency Medicine; Visit Provider Physician Assistant
PROC: 0FC98ZZ Extirpation of Matter from Common Bile Duct, Via Natural or Artificial Opening Endoscopic (ICD-10-PCS; CPT 43260; principal; 2021-06-30 12:30)
PROC: 0FT44ZZ Resection of Gallbladder, Percutaneous Endoscopic Approach (ICD-10-PCS; CPT 47562; principal; 2021-07-01 12:30)
DX: K85.10 Biliary acute pancreatitis without necrosis or infection (principal); K80.62 Calculus of gallbladder and bile duct with acute cholecystitis without obstruction; N13.30 Unspecified hydronephrosis; N99.89 Other postprocedural complications and disorders of genitourinary system; K21.9 Gastro-esophageal reflux disease without esophagitis; I10 Essential (primary) hypertension; M19.90 Unspecified osteoarthritis, unspecified site; E78.00 Pure hypercholesterolemia, unspecified; N40.0 Benign prostatic hyperplasia without lower urinary tract symptoms; E87.6 Hypokalemia; R33.8 Other retention of urine; R35.0 Frequency of micturition; C67.9 Malignant neoplasm of bladder, unspecified; M75.121 Complete rotator cuff tear or rupture of right shoulder, not specified as traumatic; X58.XXXA Exposure to other specified factors, initial encounter; Z85.820 Personal history of malignant melanoma of skin; Z85.828 Personal history of other malignant neoplasm of skin
CPT/HCPCS: 36415; 74177; 74178; 74329; 76775; 80048; 80053; 80076; 81001; 83690; 83735; 85025; 85027; 87040; 87086; 88304; 96361; 96365; 96375; 96376; 99285; A9270; J0330; J0696; J2001; J2270; J2405; J2543; J2704; J3010; J3480; J7030; J7120; Q9966; Q9967

== ENCOUNTER 2023-02-26 09:40 | Emergency (ER) | payer MEDICARE, OTHER, SELFPAY ==
[2023-02-26 09:58] VITALS: BP 131/64; PULSE 71; RESP 16; TEMP 37; O2SAT 99
--- NOTE | 2023-02-26 10:18 | ED.WOUNDLAC ---
HPI - Wound/Laceration General Chief Complaint: Wound/Laceration Stated Complaint: left hand fingers pain Time Seen by Provider: 02/26/23 10:07 Source: patient and RN notes reviewed Mode of arrival: ambulatory Limitations: no limitations History of Present Illness HPI narrative: Patient presents today complaining of injury to the left 2nd and 3rd fingers. He caught them on a grinding wheel last night. Up-to-date on tetanus vaccine. Denies any current pain. Denies numbness or tingling. Related Data Home Medications Medication Instructions Recorded Confirmed amlodipine 5 mg tablet 5 mg PO DAILY 04/05/20 09/15/22 atorvastatin 40 mg tablet (Lipitor) 40 mg PO DAILY 04/05/20 09/15/22 losartan 50 mg tablet 50 mg PO DAILY 04/05/20 09/15/22 omeprazole 20 mg capsule,delayed 40 mg PO DAILY 04/05/20 09/15/22 release meclizine 25 mg tablet 25 mg PO BID 01/07/21 09/15/22 multivitamin (Daily Multi-Vitamin 1 tablet PO DAILY 01/07/21 09/15/22 tablet) Allergies Allergy/AdvReac Type Severity Reaction Status Date / Time No Known Allergies Allergy Verified 02/26/23 09:57 Review of Systems Review of Systems: CONSTITUTIONAL: Denies body aches, fever, chills, or sweats. EYES: Denies visual changes, redness, or discharge. ENT: Denies rhinorrhea, congestion, sore throat, or otalgia. CARDIOVASCULAR: Denies chest pain, palpitations, or edema. RESPIRATORY: Denies cough or dyspnea. GASTROINTESTINAL: Denies abdominal pain, nausea, vomiting, or diarrhea. GENITOURINARY: Denies dysuria or hematuria. SKIN: Denies rash, itching. + left 2nd and 3rd finger wounds MUSCULOSKELETAL: Denies back pain, joint pain, or myalgia. NEUROLOGIC: Denies headache, numbness, tingling, or weakness. PSYCH: Denies depression or anxiety. [facility] Past Medical History Medical History Acute pancreatitis Arthritis Bladder cancer Cataract RT cataract surgery on 03/17/20. Choledocholithiasis Elevated liver enzymes Gallstone pancreatitis History of gastroesophageal reflux (GERD) Hypercholesteremia Hypertension Melanoma Right rotator cuff tear Surgical History Surgical History Basal cell carcinoma excision from right ear H/O right inguinal hernia repair History of hernia surgery LT inguinal Hx laparoscopic cholecystectomy 07/01/21 Family History Family History Father Unknown family medical history Mother , Old age Hypertension Social History Social History Smoking status: Never smoker Tobacco type: cigarettes Second hand tobacco smoke exposure: No Alcohol intake: never Alcohol use details: Rarely Substance use: never Substance use type: does not use Living arrangements: with family Occupation/Education: retired Gender identity (if verbalized by the patient): Male Spiritual care concerns: No Comments At time of signature, I have reviewed and agree with nursing past medical, surgical, social and family history unless otherwise noted. Please see nursing chart for further information. There is no relevant family history pertinent to the presenting complaint Exam Narrative: GENERAL: Well-appearing, well-nourished, and in no acute distress. HEAD: Normocephalic, atraumatic. EYES: EOMI. No redness or drainage. Conjunctivae normal. ENT: Mucous membranes pink and moist. NECK: Normal AROM. CHEST: No respiratory distress. EXTREMITIES: Normal range of motion. No edema. 2 cm x 0.5 cm superficial abrasion to the volar aspect the 2nd finger. No active bleeding. It is 0.5 cm x 0.5 cm partial-thickness skin avulsion to the skin fold of the 3rd finger. No active bleeding. Distal sensation intact. Capillary refill normal. Full range of motion of both fingers. Dressed
== END 2023-02-26 10:31 | disposition home or self-care (01) ==
PROVIDERS: Emergency Provider Nurse Practitioner
DX: S60.411A Abrasion of left index finger, initial encounter (principal); W29.8XXA Contact with other powered hand tools and household machinery, initial encounter; S61.203A Unspecified open wound of left middle finger without damage to nail, initial encounter; M19.90 Unspecified osteoarthritis, unspecified site; K21.9 Gastro-esophageal reflux disease without esophagitis; E78.00 Pure hypercholesterolemia, unspecified; I10 Essential (primary) hypertension; Z85.51 Personal history of malignant neoplasm of bladder; Z85.820 Personal history of malignant melanoma of skin
CPT/HCPCS: 99213; G0463